=== PATIENT | female | born 1930 | race Hispanic/Latino ===

== ENCOUNTER 2017-03-21 18:48 | Inpatient (IN) | payer MEDICARE ==
[2017-03-21 19:02] VITALS: BMI 30.2
--- NOTE | 2017-03-21 19:43 | ED PDOC ---
Arrival/HPI - General Chief Complaint: Syncope Time Seen by Provider: 03/21/17 19:12 Historian: Patient - History of Present Illness Narrative History of Present Illness (Text): 03/21/17 19:12 Ann Severino is an 86 year old female, whose past medical history includes TIA , who presents to the emergency department complaining of a syncopal episode about 1.5 hours ago as per patient's daughter. Patient's daughter states that her mother was in the shower when she collapsed in her shower chair. Patient's daughter also notes that patient has been experiencing diarrhea for the past few days. At present, patient is awake in the emergency department but is nonverbal, history is taken from daughter. Patient has no other complaint at this time. Time/Duration: 1-3 hours Symptom Onset: Sudden Symptom Course: Improving Activities at Onset: Light Context: Home Past Medical History - Provider Review Nursing Documentation Reviewed: Yes - Tetanus Immunization Tetanus Immunization: Unknown - Cardiac Hx Cardiac Disorders: Yes Hx Congestive Heart Failure: Yes Hx VA: Yes Hx Hypertension: Yes Hx Pacemaker: No - Pulmonary Hx Respiratory Disorders: No - Neurological Hx Neurological Disorder: Yes HX Cerebrovascular Accident: Yes (08-27-13) Other/Comment: nonverbal due to stroke but able to communicate through nodding and eye contact - HEENT Hx HEENT Disorder: Yes (WEARS RX GLASSES) - Renal Hx Renal Disorder: No - Endocrine/Metabolic Hx Endocrine Disorders: Yes Hx Diabetes Mellitus Type 2: Yes - Hematological/Oncological Hx Blood Transfusions: No Hx Blood Transfusion Reaction: No - Integumentary Hx Dermatological Disorder: No - Musculoskeletal/Rheumatological Hx Musculoskeletal Disorders: Yes Hx Arthritis: Yes Hx Falls: Yes - Gastrointestinal Hx Gastrointestinal Disorders: Yes (HEMORRHOIDS,POLYPS REMOVED) Hx Gastroesophageal Reflux: Yes - Genitourinary/Gynecological Hx Genitourinary Disorders: No - Psychiatric Hx Emotional Abuse: No Hx Physical Abuse: No Hx Substance Use: No - Anesthesia Hx Anesthesia: Yes Hx Anesthesia Reactions: No Hx Malignant Hyperthermia: No - Suicidal Assessment Feels Threatened In Home Enviroment: No Family/Social History - Physician Review Nursing Documentation Reviewed: Yes Family/Social History: No Known Family HX Smoking Status: Never Smoked Hx Alcohol Use: No (OCCASIONAL) Hx Substance Use: No Hx Substance Use Treatment: No Allergies/Home Meds Allergies/Adverse Reactions: Allergies No Known Allergies Allergy (Verified 03/21/17 19:02) Home Medications: Home Meds Medication Instructions Recorded Confirmed Amlodipine Besylate [Amlodipine 5 mg PO DAILY 01/19/15 03/22/17 Besylate] Aspirin [Aspirin] 81 mg PO DAILY 01/19/15 03/22/17 Escitalopram Oxalate [Escitalopram 10 mg PO DAILY 01/19/15 03/22/17 Oxalate] Ursodiol [Ursodiol] 300 mg PO DAILY 01/19/15 03/22/17 Valsartan [Valsartan] 80 mg PO DAILY 01/19/15 03/22/17 Warfarin Sodium [Warfarin Sodium] 5 mg PO DAILY 01/19/15 03/22/17 Acetaminophen [Tylenol Arthritis] 650 mg PO BID 03/21/17 03/22/17 Allopurinol [Zyloprim] 100 mg PO DAILY 03/21/17 03/22/17 Aspirin [Aspirin Chewable] 81 mg PO DAILY 03/21/17 03/22/17 Atorvastatin [Lipitor] 40 mg PO DAILY 03/21/17 03/22/17 Ergocalciferol (Vitamin D2) 1.25 mg PO QWK 03/21/17 03/22/17 [Vitamin D2] Folic Acid [Folic Acid] 1 mg PO DAILY 03/21/17 03/22/17 Furosemide [Lasix] 40 mg PO DAILY 03/21/17 03/22/17 Furosemide [Lasix] 40 mg PO MWF 03/21/17 03/22/17 Magnesium Oxide [Magnesium] 400 mg PO BID 03/21/17 03/22/17 Metformin HCl [Glucophage] 1,000 mg PO BID 03/21/17 03/22/17 Potassium Chloride [Klor-Con 10] 10 meq PO DAILY 03/21/17 03/22/17 Review of Systems - Physician Review All systems were reviewed & negative as marked: Yes - Review of Systems Constitutional: absent: Fevers, Night Sweats Eyes: absent: Vision Changes ENT: absent: Hearing Changes Respiratory: absent: SOB, Cough Cardiovascular: Syncope. absent: Chest Pain Gastrointestinal: absent: Abdominal Pain Genitourinary Female: absent: Dysuria, Frequency, Urine Output Changes Musculoskeletal: absent: Back Pain, Neck Pain Skin: absent: Rash, Pruritis Neurological: Normal. absent: Headache, Dizziness Psychiatric: Normal Physical Exam Vital Signs Reviewed: Yes Vital Signs Temp Pulse Resp BP Pulse Ox 05/24/17 03:00 63 16 142/63 95 03/22/17 01:38 63 16 145/62 95 03/21/17 22:37 69 19 94 L 03/21/17 19:12 97.7 F 68 18 130/74 96 Temperature: Afebrile Blood Pressure: Normal Pulse: Regular Respiratory Rate: Normal Appearance: Positive for: Well-Appearing, Non-Toxic, Comfortable Pain Distress: None Mental Status: Positive for: other (Alert ) - Systems Exam Head: Present: Atraumatic, Normocephalic Pupils: Present: PERRL Extroacular Muscles: Present: EOMI Conjunctiva: Present: Normal Mouth: Present: Moist Mucous Membranes Neck: Present: Normal Range of Motion Respiratory/Chest: Present: Clear to Auscultation, Good Air Exchange. No: Respiratory Distress, Accessory Muscle Use Cardiovascular: Present: Regular Rate and Rhythm, Normal S1, S2. No: Murmurs Abdomen: Present: Normal Bowel Sounds. No: Tenderness, Distention, Peritoneal Signs Back: Present: Normal Inspection Upper Extremity: Present: Normal Inspection. No: Cyanosis, Edema Lower Extremity: Present: Normal Inspection. No: Edema Neurological: Present: Other (Non-verbal; residual right-sided weakness) Skin: Present: Warm, Dry, Normal Color. No: Rashes Psychiatric: Present: Alert Medical Decision Making ED Course and Treatment: 03/21/17 19:12 Impression: 86 year old female complaining of a syncopal episode in the shower about 1.5 hours ago. Differential Diagnosis include but are not limited to: Dehydration vs. Chronic Arrhythmia Plan: -- EKG -- Head CT w/o contrast -- Urinalysis, Urine culture -- Labs -- IV Fluids -- Reassess and disposition Progress Notes: Patient with a Lactate of 3.7 and WBC of 18.9 Code sepsis called. 03/21/17 23:43 EKG reviewed by me: NSR @ 68 bpm. Normal [place]. Normal interval. 03/21/17 23:47 CT Head results reviewed: IMPRESSION: 1. No acute intracranial hemorrhage. 2. Hypodense encephalomalacia is identified involving the left temporal and parietal lobes, consistent with an old left MCA infarct. Infarcts are also visualized within the left basal ganglia. Otherwise, there is no acute territorial type infarct. 3. There are scattered foci/areas of hypodensity within the cerebral white matter, likely representing small vessel ischemic disease in a patient this age. Small hypodense foci are seen within the bilateral thalami, similar in etiology. 4. Mild atrophy. 5. Within the superior left parafalcine region, there is a 1.0 x 0.7 cm calcification or calcified meningioma. 03/21/17 23:48 CT abdomen pelvis reviewed: IMPRESSION: 1. Cholelithiasis. 2. 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 3. There is wall thickening of the sigmoid colon and rectum, suggestive of proctocolitis, although additional pathology cannot be excluded. Further clinical evaluation is recommended. 4. Scattered nodules are identified at the lung bases. Within the right lower lobe, one of the nodules measures 8 mm on series 2 image 29. PET/CT is recommended 03/22/17 01:[address] Cannon, intensivitst, who recommends that patient does not require the ICU. Case discussed with Dr. Gastelum who is aware and agrees with the plan to admit patient to telemetry for Sepsis and syncope. Accepts patient under his service. - Lab Interpretations Lab Results: 03/21/17 19:40 03/21/17 19:40 Lab Results 03/22/17 00:05: PT 15.2 H, INR 1.41 H 03/22/17 00:05: pO2 52, VBG pH 7.37, VBG pCO2 49.0, VBG HCO3 28.3 H, VBG Total CO2 29.8 H, VBG O2 Sat (Calc) 92.0 H, VBG Base Excess 2.2 H, VBG Potassium 4.6, Glucose 115 H, Lactate 2.3 H, FiO2 21.0, Sodium 138.0, Chloride 106.0, Venous Blood Potassium 4.6 03/21/17 22:04: Urine Color Yellow, Urine Appearance Sl cloudy, Urine pH 5.5, Ur Specific [place] 1.020, Urine Protein Negative, Urine Glucose (UA) Negative, Urine Ketones Negative, Urine Blood Trace-intact H, Urine Nitrate Positive H, Urine Bilirubin Negative, Urine Urobilinogen 0.2, Ur Leukocyte Esterase Small H , Urine RBC 1 - 3, Urine WBC 2 - 5, Ur Epithelial Cells 1 - 3, Urine Bacteria Many 03/21/17 20:40: pO2 58 H, VBG pH 7.33, VBG pCO2 50.0, VBG HCO3 26.4, VBG Total CO2 27.9, VBG O2 Sat (Calc) 92.8 H, VBG Base Excess -0.2 L, VBG Potassium 4.7, Glucose 187 H, Lactate 3.7 H, FiO2 21.0, Sodium 139.0, Chloride 106.0, Venous Blood Potassium 4.7 03/21/17 19:40: Sodium 141, Potassium 5.1 H, Chloride 101, Carbon Dioxide 26, Anion Gap 19, BUN 20, Creatinine 1.0, Est GFR ( Amer) > 60, Est GFR (Non- Af Amer) 53, Random Glucose 181 H, Calcium 9.6, Total Bilirubin 1.0, AST 43 H, ALT 26, Alkaline Phosphatase 74, Troponin I 0.02 D, Total Protein 9.0 H, Albumin 4.7, Globulin 4.3, Albumin/Globulin Ratio 1.1, Lipase 135 03/21/17 19:40: WBC 18.9 H, RBC 4.43, Hgb 13.8, Hct 41.4, MCV 93.5, MCH 31.2, MCHC 33.3, RDW 14.5, Plt Count 244, MPV 10.8, Gran % 63.7, Lymph % (Auto) 30.7, [place] % (Auto) 4.5, Eos % (Auto) 0.8 L, Baso % (Auto) 0.3, Gran # 12.02 H, Lymph # 5.8 H, [place] # 0.9 H, Eos # 0.2, Baso # 0.05 I have reviewed the lab results: Yes - RAD Interpretation Narrative RAD Interpretations (Text): EXAM: CT Head Without Intravenous Contrast FINDINGS: Brain: Hypodense encephalomalacia is identified involving the left temporal and parietal lobes, consistent with an old left MCA infarct. Infarcts are also visualized within the left basal ganglia. There are scattered foci/areas of hypodensity within the cerebral white matter, likely representing small vessel ischemic disease in a patient this age. Small hypodense foci are seen within the bilateral thalami, similar in etiology. Within the superior left parafalcine region, there is a 1.0 x 0.7 cm calcification or calcified meningioma. The acuity of the white matter disease is indeterminate. There are calcifications within the globus pallidus bilaterally, which are likely physiologic. The white-sommer differentiation is otherwise preserved demonstrating no acute territorial type infarct. There is mild prominence of the ventricles and sulci, compatible with atrophy. No acute intracranial hemorrhage is seen. Midline shift: There is no midline shift. Ventricles: There is mild ex vacuo dilatation of the left lateral ventricle. Bones/joints: The calvarium demonstrates no evidence for a depressed fracture. Hypodensity is visualized within the right occipital skull, suggestive of an arachnoid granulation. Soft tissues: No acute abnormality. Vasculature: There is atherosclerotic calcification of the cavernous internal carotid arteries and distal vertebral arteries. Sinuses: Unremarkable as visualized. No acute sinusitis. Mastoid air cells: No mastoid effusion. IMPRESSION: 1. No acute intracranial hemorrhage. 2. Hypodense encephalomalacia is identified involving the left temporal and parietal lobes, consistent with an old left MCA infarct. Infarcts are also visualized within the left basal ganglia. Otherwise, there is no acute territorial type infarct. 3. There are scattered foci/areas of hypodensity within the cerebral white matter, likely representing small vessel ischemic disease in a patient this age. Small hypodense foci are seen within the bilateral thalami, similar in etiology. 4. Mild atrophy. 5. Within the superior left parafalcine region, there is a 1.0 x 0.7 cm calcification or calcified meningioma. 6. If further evaluation is clinically indicated, an MRI of the brain is recommended. EXAM: CT Abdomen and Pelvis Without Intravenous Contrast FINDINGS: Limitations: There is a limited evaluation of organ/aortic injury due to the absence of intravenous contrast administration. Lower thorax: Scattered nodules are identified at the lung bases. Within the right lower lobe, one of the nodules measures 8 mm on series 2 image 29. At the left lung base, there is an additional 7 mm nodule. Additional nodules are visualized. ABDOMEN: Liver: Unremarkable on these noncontrast images. No mass. Gallbladder and bile ducts: A large calcified gallstone is visualized. Pancreas: Normal contour. No ductal dilation. Spleen: No splenomegaly. Adrenals: No mass. Kidneys and ureters: There is a hypodense probable right renal cyst measuring 4.7 x 4.2 cm. No obstructing stones. No hydronephrosis. Stomach and bowel: There is wall thickening of the sigmoid colon and rectum, suggestive of proctocolitis, although additional pathology cannot be excluded. Appendix: No findings to suggest acute appendicitis. PELVIS: Bladder: No stones. Reproductive: Unremarkable as visualized. ABDOMEN and PELVIS: Intraperitoneal space: No free air. Bones/joints: Osteopenia. Soft tissues: Surgical clips are identified within the bilateral inguinal regions. There is minimal herniation of fat into the umbilicus. 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 There is atherosclerotic calcification of the abdominal aorta. Lymph nodes: There is no significant retroperitoneal or intrapelvic lymphadenopathy. Other findings: A nonspecific sclerotic lesion is visualized within the bilateral acetabula. IMPRESSION: 1. Cholelithiasis. 2. 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 3. There is wall thickening of the sigmoid colon and rectum, suggestive of proctocolitis, although additional pathology cannot be excluded. Further clinical evaluation is recommended. 4. Scattered nodules are identified at the lung bases. Within the right lower lobe, one of the nodules measures 8 mm on series 2 image 29. PET/CT is recommended. 5. Additional CT findings described above. Radiology Orders: 03/21/17 19:29 HEAD W/O CONTRAST [CT] Stat 03/21/17 19:30 CHEST PORTABLE [RAD] Stat 03/21/17 22:11 ABD & PELVIS W/O PO OR IV CONT [CT] Stat Identity Access Management Architect: Radiologist - Medication Orders Current Medication Orders: Acetaminophen (Tylenol 325mg Tab) 650 mg PO Q4H PRN PRN Reason: Fever >100.5 F Sodium Chloride (Sodium Chloride 0.9%) 1,000 mls @ 125 mls/hr IV .Q8H [facility]IA EUGENIA Last Admin: 03/21/17 22:15 Dose: 125 mls/hr Discontinued Medications Sodium Chloride (Sodium Chloride 0.9%) 1,000 mls @ 80 mls/hr IV .[id number] MARIA EUGENIA Last Admin: 03/21/17 20:02 Dose: 80 mls/hr Vancomycin HCl (Vancomycin 1gm) 1 gm in 250 mls @ 167 mls/hr IVPB STAT STA PRN Reason: Protocol Stop: 03/21/17 22:21 Last Admin: 03/21/17 23:31 Dose: 167 mls/hr Piperacillin Sod/Tazobactam Sod (Zosyn 4.5 Gm In Ns 100ml) 4.5 gm in 100 mls @ 200 mls/hr IVPB STAT STA PRN Reason: Protocol Stop: 03/21/17 21:21 Last Admin: 03/21/17 22:04 Dose: 200 mls/hr - Scribe Statement The provider has reviewed the documentation as recorded by the Markibchristopher Fitzpatrick Provider Scribe Attestation: All medical record entries made by the Scribe were at my direction and personally dictated by me. I have reviewed the chart and agree that the record accurately reflects my personal performance of the history, physical exam, medical decision making, and the department course for this patient. I have also personally directed, reviewed, and agree with the discharge instructions and disposition. Disposition/Present on Arrival - Present on Arrival Any Indicators Present on Arrival: No History of DVT/PE: No History of Uncontrolled Diabetes: No Urinary Catheter: No History of Decub. Ulcer: No History Surgical Site Infection Following: None - Disposition Have Diagnosis and Disposition been Completed?: Yes Diagnosis: Sepsis, Syncope Disposition: HOSPITALIZED Disposition Time: 01:20 Condition: FAIR
[2017-03-21] MEDS ORDERED: Sodium Chloride 0.9% 1,000 ML IV SCH (19:45)
[2017-03-21 19:49] LABS: ADD MANUAL DIFF? NO
[2017-03-21 20:06] LABS: BASO # 0.05 K/mm3 (0.0-2.0); BASO % 0.3 % (0.0-3.0); EOS # 0.2 (0.0-0.7); EOS % 0.8 % (1.5-5.0); GRAN # 12.02 (1.4-6.5); GRAN % 63.7 % (50.0-68.0); HEMATOCRIT 41.4 % (36.0-48.0); LYMPH # 5.8 (1.2-3.4); LYMPH % 30.7 % (22.0-35.0); MEAN CELL VOLUME 93.5 fL (80.0-105.0); MEAN CORPUSCULAR HEMOGLOBIN 31.2 pg (25.0-35.0); MEAN CORPUSCULAR HGB CONC 33.3 g/dl (31.0-37.0); MEAN PLATELET VOLUME 10.8 fl (7.0-11.0); MONO # 0.9 (0.1-0.6); MONO % 4.5 % (1.0-6.0); PLATELET COUNT 244 10^3/uL (120.0-450.0); RED CELL DISTRIBUTION WIDTH 14.5 % (11.5-14.5); WHITE BLOOD COUNT 18.9 10^3/ul (4.5-11.0)
[2017-03-21 20:12] LABS: ALB/GLOB RATIO 1.1 (1.1-1.8); ALKALINE PHOSPHATASE 74 U/L (38-133); ALT/SGPT 26 U/L (7-56); AST/SGOT 43 U/L (15-39); BLOOD UREA NITROGEN 20 mg/dL (7-21); CALCIUM 9.6 mg/dL (8.4-10.5); CARBON DIOXIDE 26 mmol/L (21-33); CHLORIDE 101 mmol/L (98-107); GFR AFRICAN-AMERICAN > 60; GLUCOSE,RANDOM 181 mg/dL (70-110); LIPASE 135 U/L (23-300); POTASSIUM 5.1 mmol/L (3.6-5.0); SODIUM 141 mmol/L (132-148)
[2017-03-21 20:23] LABS: TROPONIN I 0.02 ng/mL
[2017-03-21 20:43] LABS: VENOUS BLOOD GAS BASE EXCESS -0.2 mmol/L (0.0-2.0); VENOUS BLOOD PH 7.33 (7.32-7.43)
[2017-03-21] MEDS ORDERED: Vancomycin 1gm in NS 250ml 1 GM/250 ML BAG IVPB STA (20:52)
[2017-03-21] MEDS ORDERED: Piperacill/Tazo 4.5gm in NS 4.5 GM/100 ML BAG IVPB STA (20:52)
[2017-03-21 22:08] LABS: PH,URINE 5.5 (4.7-8.0); URINE BILIRUBIN NEGATIVE (NEGATIVE); URINE BLOOD TRACE-INTACT (NEGATIVE); URINE GLUCOSE (UA) NEGATIVE (NEGATIVE); URINE KETONE NEGATIVE (NEGATIVE); URINE LEUKOCYTE ESTERASE SMALL Leu/uL (NEGATIVE); URINE PROTEIN NEGATIVE mg/dL (<30 mg/dL); URINE UROBILINOGEN 0.2 E.U./dL (<1 E.U./dL)
[2017-03-21 22:10] LABS: URINE APPEARANCE SL CLOUDY (CLEAR); URINE COLOR YELLOW (YELLOW)
[2017-03-21] MEDS: Sodium Chloride 0.9% 1,000 ML IV SCH (22:15)
[2017-03-21 22:30] LABS: URINE BACTERIA MANY (NEG)
[2017-03-22 00:26] LABS: INR 1.41 (0.93-1.08)
[2017-03-22 00:29] LABS: VENOUS BLOOD GAS BASE EXCESS 2.2 mmol/L (0.0-2.0); VENOUS BLOOD PH 7.37 (7.32-7.43)
--- NOTE | 2017-03-22 03:12 | CP.PCM.CON ---
<Carmen Cat - Last Filed: 03/22/17 07:18> History of Present Illness - History of Present Illness History of Present Illness: PGY-1 Consult note 86 yo female wit PMH of TIA, HTN, CHF, DM, arthritis and a. fib presented to ED after syncopal episode. Patient is nonverbale after TIA, majority of history from daughter at bedside. Per daughter patient had loss consciences after getting out of gallito shower. The episode was witnessed by the access control specialist. Patient was unconscious for 1 minute. Patient was in sited position and did not hit her head. Her BP was 80/60 at the time of the event. Patient denies any pain, headaches, dizziness. Recently patient has diarrhea. Denies fever, chills, sob, abd pain, n/v, and urinary symptoms. Patient does have occasional wheezes however she take nebulizers at home. In ED patient was found to have elevated lactic acid and WBC, code sepsis was called. Patient had positive UA. CT abd showed thickened wall of sigmoid colon and rectum. CT head was negative for intracranial hemorrhage. EKG showed nsr. PMH: TIA, HTN, CHF, DM, arthritis and a. fib PSH: denies social hx: denies smoking, occasional alcohol use, denies illicit ezekiel use allergy: NKDA Review of Systems - Constitutional Constitutional: absent: Fever, Headache, Weight Gain, Weight Loss - EENT Eyes: absent: Change in Vision Nose/Mouth/Throat: absent: Sore Throat - Cardiovascular Cardiovascular: absent: Chest Pain, Dyspnea - Respiratory Respiratory: absent: Cough, Dyspnea - Gastrointestinal Gastrointestinal: Diarrhea. absent: Abdominal Pain, Nausea, Vomiting - Genitourinary Genitourinary: absent: Difficulty Urinating, Dysuria - Musculoskeletal Musculoskeletal: Arthralgias, Muscle Weakness (right sided 2/2 CVA) - Integumentary Integumentary: Wounds. absent: Swelling - Neurological Neurological: Focal Weakness, Syncope. absent: Dizziness, Headaches - Hematologic/Lymphatic Hematologic: Easy Bruising. absent: Easy Bleeding Past Patient History - Tetanus Immunizations Tetanus Immunization: Unknown - Past Social History Smoking Status: Never Smoked Alcohol: Occasional Drugs: Denies - CARDIAC Hx Cardiac Disorders: Yes Hx Congestive Heart Failure: Yes Hx Heart Attack: Yes Hx Hypertension: Yes Hx Pacemaker: No - PULMONARY Hx Respiratory Disorders: No - NEUROLOGICAL Hx Neurological Disorder: Yes HX Cerebrovascular Accident: Yes (08-27-13) Other/Comment: nonverbal due to stroke but able to communicate through nodding and eye contact - HEENT Hx HEENT Problems: Yes (WEARS RX GLASSES) - RENAL Hx Chronic Kidney Disease: No - ENDOCRINE/METABOLIC Hx Endocrine Disorders: Yes Hx Diabetes Mellitus Type 2: Yes - HEMATOLOGICAL/ONCOLOGICAL Hx Blood Transfusions: No Hx Blood Transfusion Reaction: No - INTEGUMENTARY Hx Dermatological Problems: No - MUSCULOSKELETAL/RHEUMATOLOGICAL Hx Musculoskeletal Disorders: Yes Hx Arthritis: Yes Hx Falls: Yes - GASTROINTESTINAL Hx Gastrointestinal Disorders: Yes (HEMORRHOIDS,POLYPS REMOVED) Hx Gastroesophageal Reflux: Yes - GENITOURINARY/GYNECOLOGICAL Hx Genitourinary Disorders: No - PSYCHIATRIC Hx Emotional Abuse: No Hx Physical Abuse: No Hx Substance Use: No - SURGICAL HISTORY Hx Surgeries: Yes (VEIN STRIPPING,POLYPS REMOVED IN THE COLON) - ANESTHESIA Hx Anesthesia: Yes Hx Anesthesia Reactions: No Hx Malignant Hyperthermia: No Meds Allergies/Adverse Reactions: Allergies Allergy/AdvReac Type Severity Reaction Status Date / Time No Known Allergies Allergy Verified 03/21/17 19:02 - Medications Medications: Current Medications Acetaminophen (Tylenol 325mg Tab) 650 mg PO Q4H PRN PRN Reason: Fever >100.5 F Sodium Chloride (Sodium Chloride 0.9%) 1,000 mls @ 125 mls/hr IV .Q8H MARIA EUGENIA Last Admin: 03/21/17 22:15 Dose: 125 mls/hr Physical Exam - Constitutional Appears: Well, No Acute Distress - Head Exam Head Exam: ATRAUMATIC, NORMOCEPHALIC - Eye Exam Eye Exam: Normal appearance - ENT Exam ENT Exam: Mucous Membranes Moist - Respiratory Exam Respiratory Exam: Clear to Auscultation Bilateral, NORMAL BREATHING PATTERN. absent: Rales, Rhonchi, Wheezes, Respiratory Distress - Cardiovascular Exam Cardiovascular Exam: REGULAR RHYTHM. absent: Tachycardia, Diastolic murmur, Systolic Murmur - GI/Abdominal Exam GI & Abdominal Exam: Normal Bowel Sounds, Soft. absent: Distended, Firm, Guarding, Tenderness - Extremities Exam Extremities exam: Positive for: normal inspection. Negative for: pedal edema Additional comments: right sided weakness - Neurological Exam Neurological exam: Alert, Oriented x3 - Skin Skin Exam: Dry, Intact, Normal Color, Warm Results - Vital Signs Recent Vital Signs: Last Vital Signs Temp 97.7 F 03/21/17 19:12 Pulse 63 03/22/17 01:38 Resp 16 03/22/17 01:38 BP 145/62 03/22/17 01:38 Pulse Ox 95 03/22/17 01:38 - Labs Result Diagrams: 03/21/17 19:40 03/21/17 19:40 Assessment & Plan - Assessment and Plan (Free Text) Assessment: 86 yo female wit PMH of TIA, HTN, CHF, DM, arthritis and a. fib presented to ED after syncopal episode most like due to sepsis. Plan: - IVF - broad spectrum abx - procalcitonin - ID consult - vitals are stable, patient does not require ICU level care. <Kassandra RAYMOND,Tiago - Last Filed: 03/22/17 08:08> Meds - Medications Medications: Current Medications Acetaminophen (Tylenol 325mg Tab) 650 mg PO Q4H PRN PRN Reason: Fever >100.5 F Allopurinol (Zyloprim) 100 mg PO DAILY [facility] Aspirin (Ecotrin) 81 mg PO DAILY [facility] Atorvastatin Calcium (Lipitor) 40 mg PO DAILY [facility] Cholecalciferol (Vitamin D) 2,000 iu PO DAILY [facility] Enoxaparin Sodium (Lovenox) 40 mg SC DAILY MARIA EUGENIA PRN Reason: Protocol Folic Acid (Folic Acid) 1 mg PO DAILY [facility] Sodium Chloride (Sodium Chloride 0.9%) 1,000 mls @ 125 mls/hr IV .Q8H [facility] Last Admin: 03/21/17 22:15 Dose: 125 mls/hr Piperacillin Sod/Tazobactam Sod (Zosyn 3.375 In Ns 100ml) 100 mls @ 200 mls/hr IVPB Q8 MARIA EUGENIA PRN Reason: Protocol Stop: 03/22/17 14:29 Last Admin: 03/22/17 06:33 Dose: 200 mls/hr Magnesium Oxide (Mag-Ox) 400 mg PO BID [facility] Non-Formulary Medication (Amlodipine Besylate [Amlodipine Besylate]) 5 mg PO DAILY [facility] Non-Formulary Medication (Escitalopram Oxalate [Escitalopram Oxalate]) 10 mg PO DAILY [facility] Non-Formulary Medication (Ursodiol [Ursodiol]) 300 mg PO DAILY [facility] Non-Formulary Medication (Valsartan [Valsartan]) 80 mg PO DAILY [facility] Non-Formulary Medication (Warfarin Sodium [Warfarin Sodium]) 5 mg PO DAILY MARIA EUGENIA Results - Vital Signs Recent Vital Signs: Last Vital Signs Temp 98.1 F 03/22/17 04:00 Pulse 64 03/22/17 04:00 Resp 20 03/22/17 04:00 BP 155/72 H 03/22/17 04:00 Pulse Ox 94 L 03/22/17 04:00 - Labs Result Diagrams: 03/22/17 07:00 03/21/17 19:40 Labs: Laboratory Results - last 24 hr 03/22/17 07:00 WBC 15.0 H D RBC 3.77 Hgb 11.6 L Hct 34.6 L MCV 91.8 MCH 30.8 MCHC 33.5 RDW 14.0 Plt Count 218 MPV 10.7 Gran % 48.9 L Lymph % (Auto) 42.6 H [place] % (Auto) 6.6 H Eos % (Auto) 1.7 Baso % (Auto) 0.2 Gran # 7.33 H Lymph # 6.4 H [place] # 1.0 H Eos # 0.3 Baso # 0.03 Attending/Attestation - Attestation I have personally seen and examined this patient.: Yes I have fully participated in the care of the patient.: Yes I have reviewed all pertinent clinical information: Yes Notes (Text): 03/22/17 08:04 -I agree with the above ICU consult note completed by the resident physician with the following additions and/or changes: -The patient is an 86 year old woman with a history of TIA, HTN, CHF, DM, arthritis and atrial fibrillation who presents with sepsis due to UTI and colitis. Because her vitals signs are relatively normal, she doesn't require ICU level of care at this time. We recommend admitting the patient to the telemetry garcia and starting aggressive IVF's and empiric IV antibiotics. Also recommend checking procalcitonin and lactic acid level and consulting I.D. If the patient's condition deteriorates, please feel free to re-consult. Thank you.
[2017-03-22] MEDS: Piperacillin/Tazobact 3.375 gm 100 ML IVPB SCH ×3 (06:33→22:42)
[2017-03-22 07:45] LABS: ADD MANUAL DIFF? NO
[2017-03-22 07:56] LABS: BASO # 0.03 K/mm3 (0.0-2.0); BASO % 0.2 % (0.0-3.0); EOS # 0.3 (0.0-0.7); EOS % 1.7 % (1.5-5.0); GRAN # 7.33 (1.4-6.5); GRAN % 48.9 % (50.0-68.0); HEMATOCRIT 34.6 % (36.0-48.0); LYMPH # 6.4 (1.2-3.4); LYMPH % 42.6 % (22.0-35.0); MEAN CELL VOLUME 91.8 fL (80.0-105.0); MEAN CORPUSCULAR HEMOGLOBIN 30.8 pg (25.0-35.0); MEAN CORPUSCULAR HGB CONC 33.5 g/dl (31.0-37.0); MEAN PLATELET VOLUME 10.7 fl (7.0-11.0); MONO % 6.6 % (1.0-6.0); PLATELET COUNT 218 10^3/uL (120.0-450.0)
[2017-03-22 08:09] LABS: ALB/GLOB RATIO 1.2 (1.1-1.8); ALKALINE PHOSPHATASE 68 U/L (38-133); ALT/SGPT 26 U/L (7-56); AST/SGOT 23 U/L (15-39); BILIRUBIN,DIRECT 0.3 mg/dL (0.0-0.4); BILIRUBIN,TOTAL 0.8 mg/dL (0.2-1.3); BLOOD UREA NITROGEN 18 mg/dL (7-21); CALCIUM 8.7 mg/dL (8.4-10.5); CARBON DIOXIDE 29 mmol/L (21-33); CHLORIDE 105 mmol/L (98-107); GFR AFRICAN-AMERICAN > 60; GLUCOSE,RANDOM 93 mg/dL (70-110); MAGNESIUM 1.7 mg/dL (1.7-2.2); POTASSIUM 4.1 mmol/L (3.6-5.0); SODIUM 140 mmol/L (132-148); TOTAL PROTEIN 6.9 g/dL (5.8-8.3)
[2017-03-22 08:22] LABS: TROPONIN I 0.01 ng/mL
[2017-03-22 08:52] LABS: FREE T4 0.89 ng/dL (0.78-2.19); T4 6.7 ug/dL (5.5-11.0)
[2017-03-22 09:00] LABS: CHOLESTEROL 157 mg/dL (130-200); URIC ACID 3.5 mg/dL (2.5-6.2)
--- NOTE | 2017-03-22 09:00 | CT ---
PROCEDURE: CT Abdomen and Pelvis without Oral or IV contrast. HISTORY: abd pain COMPARISON: Abdominal ultrasound performed 09/05/13 TECHNIQUE: Contiguous axial images of the abdomen and pelvis. No oral or IV contrast administered. Coronal and Sagittal reformats generated and reviewed. Radiation dose: Total exam DLP = 1017.11 mGy-cm. This CT exam was performed using one or more of the following dose reduction techniques: Automated exposure control, adjustment of the mA and/or kV according to patient size, and/or use of iterative reconstruction technique. FINDINGS: There is limited evaluation of the solid organs without the administration of IV contrast. LOWER THORAX: No visible consolidation, pleural effusion, or pneumothorax. Scattered pulmonary nodules at the lung bases measuring up to 8 mm in the right lower lobe (series 2, image 29) and 7 mm at the left lung base. Small hiatal hernia/distal esophageal wall thickening. LIVER: Unremarkable unenhanced appearance. GALLBLADDER AND BILE DUCTS: 17 mm calcified gallstone. PANCREAS: Unremarkable unenhanced appearance. 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 Unremarkable unenhanced appearance of the spleen. ADRENALS: Unremarkable unenhanced appearance. KIDNEYS AND URETERS: No hydronephrosis or obstructing renal calculus. 4.3 cm right lower pole renal hypodensity measures approximately 10 HU consistent with cyst. BLADDER: The urinary bladder appears unremarkable. REPRODUCTIVE: Uterus is present. APPENDIX: The appendix appears within normal limits of caliber. No secondary signs of acute appendicitis. BOWEL: The stomach is nondistended. Lack of oral contrast limits evaluation for bowel pathology. The bowel loops appear within normal limits of caliber without evidence of intestinal obstruction. Evidence of wall thickening involving the rectosigmoid colon ; correlate clinically for colitis and/or proctitis. Please note under distension limits evaluation. PERITONEUM: No significant free fluid. No definite free air. LYMPH NODES: No bulky lymphadenopathy identified. VASCULATURE: Dense atherosclerotic calcifications of the aorta and branches. No aortic aneurysm. BONES: Osseous demineralization. Degenerative changes. OTHER FINDINGS: None. IMPRESSION: Cholelithiasis. Evidence of wall thickening involving the rectosigmoid colon ; correlate clinically for colitis and/or proctitis. Please note under distension limits evaluation. Evidence of calcified splenic artery aneurysm. 4.3 cm right lower pole renal cyst. Bilateral lower lobe pulmonary nodules measuring up to 8 mm at the right lung base and 7 mm at the left lung base. Recommend patient's indicate further evaluation with biopsy, PET- CT, or follow-up CT at 3 months, and 9 months, and 24 months. Additional findings as above. Preliminary impression was provided by virtual radiologic.
[2017-03-22 09:05] LABS: THYROID STIMULATING HORMONE 1.64 mIU/mL (0.46-4.68)
[2017-03-22] MEDS ORDERED: Potassium Chloride 10 mEq ER Tab PO SCH (10:00)
[2017-03-22] MEDS ORDERED: ERGOCALCIFEROL 1.25 MG PO SCH (10:00)
[2017-03-22] MEDS ORDERED: Gadodiamide 287 MG/ML VIAL (15ML) IV ONE (10:03)
--- NOTE | 2017-03-22 10:05 | CARD ---
APPROVED REPORT EKG Measurement Heart [id number] <Conclusion> Normal sinus rhythm Normal ECG
--- NOTE | 2017-03-22 10:31 | RAD ---
HISTORY: syncope COMPARISON: 02/05/2014 FINDINGS: LUNGS: No active pulmonary disease. PLEURA: No significant pleural effusion identified, no pneumothorax apparent. CARDIOVASCULAR: Normal. OSSEOUS STRUCTURES: No significant abnormalities. VISUALIZED UPPER ABDOMEN: Normal. OTHER FINDINGS: None. IMPRESSION: No active disease.
--- NOTE | 2017-03-22 10:58 | CT ---
PROCEDURE: CT HEAD WITHOUT CONTRAST. HISTORY: syncope COMPARISON: 09/16/2013 TECHNIQUE: Axial computed tomography images were obtained through the head/brain without intravenous contrast. Radiation dose: Total exam DLP = 725 mGy-cm. This CT exam was performed using one or more of the following dose reduction techniques: Automated exposure control, adjustment of the mA and/or kV according to patient size, and/or use of iterative reconstruction technique. FINDINGS: HEMORRHAGE: No intracranial hemorrhage. BRAIN: No mass effect or edema. There is chronic encephalomalacia in the left temporal and parietal lobes and basal ganglia. There is associated atrophy with dilatation of the left lateral ventricle. VENTRICLES: Unremarkable. No hydrocephalus. CALVARIUM: Unremarkable. PARANASAL SINUSES: Unremarkable as visualized. No significant inflammatory changes. MASTOID AIR CELLS: Unremarkable as visualized. No inflammatory changes. OTHER FINDINGS: None. IMPRESSION: Chronic encephalomalacia in the left temporal and parietal lobe and left basal ganglia. No acute findings
[2017-03-22] MEDS: Enoxaparin 40 mg Syringe SC SCH (12:28)
[2017-03-22] MEDS: Magnesium Oxide 400 mg Tab UD PO SCH ×2 (12:28→17:17)
[2017-03-22 12:49] LABS: FOLATE > 20.0 ng/mL
--- NOTE | 2017-03-22 13:45 | MRI ---
PROCEDURE: MRI BRAIN WITH AND WITHOUT CONTRAST HISTORY: SYNCOPE/CVA COMPARISON: 03/21/2017 TECHNIQUE: Multiplanar, multisequence MR images of the brain were obtained with and without intravenous contrast enhancement. 15 cc of Omniscan FINDINGS: HEMORRHAGE: None DWI: No evidence of an acute or early subacute infarction. BRAIN PARENCHYMA: There is extensive encephalomalacia in the left hemisphere including the basal ganglia. There is left-sided atrophy with dilatation of the left lateral ventricle ENHANCEMENT: No abnormal intracranial enhancement. VENTRICLES: Unremarkable. No hydrocephalus. CRANIUM: Unremarkable. ORBITS: Grossly unremarkable. PARANASAL SINUSES/MASTOIDS: Clear VASCULAR SYSTEM: Skull base flow voids intact. OTHER FINDINGS: None . IMPRESSION: No acute intracranial findings. There is extensive encephalomalacia in the left hemisphere including the basal ganglia. There is left-sided atrophy with dilatation of the left lateral ventricle
--- NOTE | 2017-03-22 13:48 | MRI ---
PROCEDURE: Magnetic Resonance Angiography Brain HISTORY: SYNCOPE/CVA COMPARISON: None available. TECHNIQUE: 3D time of flight MR angiography of the intracranial arteries was performed. Rotating maximum intensity projection images were generated. FINDINGS: INTERNAL CEREBRAL ARTERIES: Unremarkable. The skull base, petrous, cavernous and supraclinoid segments are bilaterally widely patient. ANTERIOR CEREBRAL ARTERIES: Unremarkable. A1 and A2 segments are widely patent. Smaller distal branches unremarkable, as visualized. MIDDLE CEREBRAL ARTERIES: Unremarkable. M1 and M2 segments are widely patent. Perisylvian branches grossly symmetric. POSTERIOR CIRCULATION: Basilar Artery: Unremarkable. Distal Vertebral Arteries: Unremarkable. Posterior Cerebral Arteries: Unremarkable. Posterior Inferior Cerebellar Arteries: Unremarkable. ANEURYSM/ VASCULAR MALFORMATIONS: None. OTHER FINDINGS: None. IMPRESSION: Unremarkable MR angiography of the brain.
--- NOTE | 2017-03-22 14:07 | CON ---
DATE: 03/22/2017 HISTORY OF PRESENT ILLNESS: The patient is an 86-year-old woman with a history of TIAs in the past, who was found to be on the floor after a syncopal episode lasting approximately 1 minute. PAST MEDICAL HISTORY: Notable for hypertension, questionable atrial fibrillation in the past. The patient's last cardiac evaluation included a stress test in 2014 which showed good LV function an d no ischemic changes. Since her episode, the patient has been nonverbal. SOCIAL HISTORY AND REVIEW OF SYSTEMS: Are unavailable. PHYSICAL EXAMINATION: VITAL SIGNS: Stable. The heart rate is in the 70s, normal sinus rhythm. NECK: Negative JVD. LUNGS: Without rales. HEART: Revealed S1, S2 with a soft II/ systolic ejection murmur. EXTREMITIES: Without edema. LABORATORIES: Includes an EKG which is unremarkable. Troponins are negative x 1. The CT scan of the head was noted. IMPRESSION: 1. Syncope. 2. Questionable new cerebrovascular accident. 3. Remote history of atrial fibrillation, although the patient is in normal sinus rhythm now. 4. Hypertension. Given these findings, will obtain an echocardiogram to evaluate her LV function as well as rule out L V outflow obstruction. MRI of the head is pending. Edson Garay MD cc: [id number] TT: 03/22/2017 14:06:41 Confirmation # [id number] Dictation # [id number] pollo
[2017-03-22] MEDS: Sodium Chloride 0.9% 1,000 ML IV SCH ×2 (14:39→22:46)
--- NOTE | 2017-03-22 15:36 | HP ---
HISTORY OF PRESENT ILLNESS: The patient is an 86-year-old female who was brought to the Emergency Ro om after the patient's daughter called me last night that, while the patient was in the shower francisco fine cleaned up by the quality process engineer, patient had a syncopal episode and loss of consciousness. According t o the quality process engineer and the patient's family, the blood pressure was low in systolic, around 80s. At gael t time, the patient's family called and contracted us. I advised the patient's daughter to take cathy ent to the Emergency Room as soon as possible. The patient's 13 system review, according to the ER t renata note and as per the Emergency Room evaluation and as per the family, is loss of consciousness a nd syncope, and this happened while patient was in the shower being assisted by the patient's caretak er; the patient fell on the chair and passed out. REVIEW OF SYSTEMS: A 13-system review was done. Pertinent positive and negative dictated above. CODE STATUS: Full code. LIVING WILL AND ADVANCED DIRECTIVE: None. ALLERGIES: None. Height is 5 feet 2 inches. Weight is 172. BMI is 32. HOME MEDICATIONS: 1. Coumadin 5 mg daily. 2. Diovan 80 mg daily. 3. Actigall 300 mg once a day. 4. K-Dur 10 mEq daily. 5. Metformin 1000 mg twice a day. 6. Magnesium 400 twice a day. 7. Lasix 40 mg daily and b.i.d. Monday, Monday and Monday. 8. Folic acid 1 mg daily. 9. Lexapro 10 mg daily. 10. Vitamin D2 50,000 weekly. 11. Lipitor 40 mg daily. 12. Ecotrin 81 mg daily. 13. Norvasc 5 mg daily. 14. Zyloprim 100 mg daily. 15. Tylenol Arthritis p.r.n. SOCIAL HISTORY: Occasional alcohol. Denies smoking, denies substance abuse, denies polysubstance ab use, denies communicable transmissible disease as per the patient's family. OCCUPATIONAL HISTORY: Disabled 86-year-old female. MENSTRUAL HISTORY: Postmenopausal. 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 Past medical history is also significant for history o f normocytic anemia, history of hypercholesterolemia, hypertriglyceridemia. The patient's past medic al history is significant for history of left temporal lobe/left basal ganglia subacute infarct in , history of cholelithiasis, history of right renal cyst, history of deconditioning, history of gai t dysfunction, history of right-sided hemiparesis, history of left basal ganglia/left lira radiata/ anterior temporal lobe subacute infarct with left posterior temporal lobe infarct, history of 40-59% proximal bilateral carotid artery stenosis, history of right shoulder pain, history of left lira ra diata/left basal ganglia/left temporal lobe acute infarct in 07/2013, history of sigmoid/transverse c olon/descending colon polyp and tubular adenoma and hyperplastic polyp of the sigmoid colon and tubul ar adenoma of the transverse and descending colon, history of hypertensive cardiovascular disease, hi story of gait dysfunction, history of expressive aphasia, history of aortic sclerosis, history of mod erate aortic valve sclerosis, history of mild mitral regurgitation, history of mild tricuspid regurgi tation. Past medical history is also significant for history cerebrovascular accident with right-edward ed weakness in 2012, history of hemorrhagic conversion of the CVA, history of gastrostomy tube placem ent, history of expressive aphasia. 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 The patient's past medical history is also significant for history of feeding dysfunction, history of hyp ertension, history of chronic lymphocytic leukemia, history of aspiration pneumonia, chronic lymphocy tic leukemia, history of gastrostomy tube placement. The patient's past medical history is significa nt for history of deconditioning. PHYSICAL EXAMINATION: VITAL SIGNS: The patient was seen and evaluated in the Emergency Room. T-max is 98.1. Heart rate i s 63-64-85. Blood pressure in the Emergency Room 130/74, 145/62, 142/63, 153/72, 142/63, 123/54. Re spiration is 16-20. O2 sat is 95-96%. GENERAL: The patient is seen sitting up in the bed. The patient is awake, responsive, aphasic. HEAD: Normocephalic, atraumatic. EENT: Shows pinkish conjunctivae, dry oral mucosa. No neck rigidity. Soft carotid bruit. The cathy ent is aphasic. CHEST: Kyphosis. LUNGS: Show occasional rhonchi upper lung soares. CARDIOVASCULAR: Shows S1, S2, regular rhythm. Questionable soft systolic murmur left sternal border , left second intercostal space. ABDOMEN: Protuberant. GENITALIA: Female. RECTAL: Deferred. EXTREMITIES: Show no pitting edema, no calf tenderness, no Homans' sign. Positive right-sided weakn ess noted. ADDENDUM TO PAST MEDICAL HISTORY: The patient's past medical history has a history of questionable c oronary artery disease, history of type 2 diabetes, history of colonic polyp, history of gastroesopha geal reflux, history of degenerative joint disease, history of cerebrovascular accident, history of v aricose vein surgery. NEUROLOGIC: The patient appears to be alert, awake and responsive but aphasic. NEUROLOGIC: Examination is limited except for patient is aphasic at present. GAIT: Could not be tested . DIAGNOSTICS: WBC at 18.9, repeat WBC is 15.0. Hemoglobin and hematocrit are 13.8 and 41.4. Repeat CBC showed hemoglobin and hematocrit of 11.6 and 34.6. Platelets are ranging between 218 and 244. P T, INR are 15.2, 1.41. Initial VBG shows a lactate of 3.7. Repeat VBG shows a lactate of 2.3. Init ial chemistry: Sodium 141, potassium 5.1, chloride 101, CO2 of 26, anion gap 19, BUN 20, creatinine 1.0, GFR greater than 60, glucose 181. Lactic acid was 1.1, uric acid 3.5, calcium 9.6 and 8.7, magn esium 1.7. AST 43, down to 23. Troponin 2 sets are negative at 0.01 and 0.02. Triglyceride 225, ch olesterol 157, LDL 72. Procalcitonin level is 0.09. TSH 1.64. B12 447, vitamin D 33.5. TSH is nor mal. T4 is normal. Urine pH 5.0, specific gravity is 1.020, trace blood, positive nitrites, small l eukocyte esterase, many bacteria. The patient had a CAT scan of the head and abdomen and pelvis done in the Emergency Room. The patient's CT head and CAT scan of the abdomen and pelvis were reviewed. CAT scan of the head shows old left middle cerebral artery infarct. CAT scan of the abdomen and pel vis shows cholelithiasis, renal cyst, questionable proctocolitis. CT of the head official report: C hronic left temporal lobe and parietal lobe encephalomalacia and encephalomalacia of the left basal g anglia. CAT scan of the abdomen and pelvis shows bibasilar subcentimeter pulmonary nodules, hiatal h ernia, distal esophageal wall thickening, splenic hilum calcification. Questionable rectosigmoid pro ctocolitis with wall thickening. EKG shows sinus rhythm. The patient was seen in the Emergency Room by the ER physician. The patient is requested an ICU eval uation because code sepsis was called because of elevated lactic acid. Code sepsis was called for el evated lactic acid. The patient was evaluated by an wet char conveyor tender and patient was cleared for admissio n to telemetry. IMPRESSION: 1. Syncope, etiology undetermined. 2. History of possible atrial fibrillation, Coumadin-dependent. 3. Lactic acidosis with possible sepsis. 4. Transient hypotension. 5. History of expressive aphasia secondary to left middle cerebral artery infarct. 6. Status post code sepsis. 7. Leukocytosis. 8. Subtherapeutic anticoagulation. 9. Lactic acidosis. 10. Dyslipidemia. 11. Mild hyperkalemia. 12. Hyperglycemia. 13. Questionable urinary tract infection with pyuria, microscopic hematuria, bacteriuria. 14. Left temporoparietal lobe and left basal ganglia chronic encephalomalacia secondary to left midd le cerebral artery infarct. 15. Subcentimeter pulmonary nodules of the right and left lower lobe. 16. Small hiatal hernia. 17. Questionable gastroesophageal reflux with distal esophageal wall thickening. 18. Cholelithiasis. 19. Splenic hilum calcified, splenic artery aneurysm. 20. Right renal cyst. 21. Questionable proctocolitis with rectosigmoid wall thickening. 22. Degenerative joint disease of the spine. 23. Cholelithiasis. 24. Right hemiparesis. 25. History of Coumadin-dependent atrial fibrillation. 26. History of hypertension, history of cholelithiasis, history of type 2 diabetes mellitus, history of bilateral lower extremity venous stasis, history of depression, history of hypovitaminosis D, his tory of dyslipidemia, history of hyperuricemia. PLAN: At this time, patient is to be admitted to telemetry. Serial labs ordered. Serial PT, PTT or dered. Blood cultures, urine cultures ordered. CONSULTATIONS: Cardiology, neurology, infectious disease. The patient has been ordered RPR. MEDICATIONS: 1. Actigall 300 mg daily ordered. 2. The patient resumed on Coumadin 5 mg daily, which according to the patient's daughter, the patien t has not been taking regularly. 3. The patient is started on Cozaar 50 mg daily instead of Diovan. 4. Ecotrin 81 mg daily. 5. Folic acid 1 mg daily. 6. Lexapro 10 mg daily. 7. Lipitor 40 mg daily. 8. Lovenox 40 mg subQ daily. 9. Magnesium oxide 400 twice a day. 10. The patient was given IV fluid. 11. Tylenol 650 q. 4 p.r.n. 12. The patient was given vancomycin 1 gram stat. 13. Vitamin D3 2000 units daily. 14. The patient started on Zosyn 3.375 g IV q. 8. 15. Allopurinol 100 mg daily. The patient is ordered Carotid Doppler, MRI/MRA of the brain, EEG. Echo with Doppler ordered. The p hadley's MRI/MRA brain, carotid Doppler, echo results are pending. EEG is pending. The patient has been ordered out of bed, SWETA stockings, SCDs. Occupational and physical therapy ordered. At present , patient is admitted to telemetry to room 270. At present, patient's further management will be dep endent upon the patient's clinical condition, hemodynamic status, and as per the patient's response t o therapeutic intervention, as per patient's diagnostic test results and as per recommendation by all physicians involved in the care of the patient. Dictated and electronically signed; not read. Cody Fareed Gastelum MD cc: [id number] TT: 03/22/2017 15:11:00 ma 03/22/2017 14:36:13
--- NOTE | 2017-03-22 16:23 | US ---
PROCEDURE: Bilateral carotid artery duplex ultrasound HISTORY: Carotid stenosis syncope PHYSICIAN(S): Edson Hernandez MD. TECHNIQUE: Duplex sonography and color-flow Doppler were used to evaluate the carotid bifurcations and limited segments of the vertebral arteries bilaterally. FINDINGS: There is mild to moderate smooth heterogeneous plaque noted at the carotid bifurcations bilaterally. The peak systolic velocity in the proximal right internal carotid artery is 115 cm/sec. This corresponds to a 40-59 percent proximal right ICA stenosis. Normal systolic velocities are noted in the proximal right external carotid artery. There is antegrade flow in the dominant right vertebral artery. The peak systolic velocity in the proximal left internal carotid artery is 56 cm/sec. This corresponds to a 20 to 39% proximal left ICA stenosis. Normal systolic velocities are noted in the proximal left external carotid artery. There is antegrade flow in the atretic left vertebral artery. IMPRESSION: 1. 40-59 percent proximal right ICA stenosis. 2. 20-39 percent proximal left ICA stenosis. 3. Antegrade flow in both vertebral arteries.
--- NOTE | 2017-03-22 18:56 | CARD ---
APPROVED REPORT EXAM: Two-dimensional and M-mode echocardiogram with Doppler and color Doppler. INDICATION Syncope 2D DIMENSIONS Left Atrium (2D)4.0 (1.6-4.0cm)IVSd0.9 (0.7-1.1cm) LVDd4.3 (3.9-5.9cm)PWd1.0 (0.7-1.1cm) LVDs2.9 (2.5-4.0cm)FS (%) 32.6 % LVEF (%)61.2 (>50%) M-Mode DIMENSIONS Aortic Root1.80 (2.2-3.7cm)Aortic Cusp Exc.1.40 (1.5-2.0cm) Aortic Valve AoV Peak Oseqguye804.0cm/Ciaarn Peak GR.12mmHg Mitral Valve MV E Btyjnjfh15.3cm/sMV A Hswoudqe62.8cm/sE/A ratio1.4 TDI E/Lateral E'0.0E/Medial E'0.0 Tricuspid Valve TR Peak Pozpjlro095po/sRAP [id number] Peak Gr.15mmHg [id number] LEFT VENTRICLE The left ventricle is normal size. There is normal left ventricular wall thickness. The left ventricular function is normal. The left ventricular ejection fraction is within the normal range. There is normal LV segmental wall motion. Transmitral Doppler flow pattern is Grade II-pseudonormal filling dynamics. RIGHT VENTRICLE The right ventricle is borderline dilated. There is normal right ventricular wall thickness. The right ventricular systolic function is normal. ATRIA The left atrium size is normal. The right atrium size is normal. AORTIC VALVE The aortic valve is moderately thickened. No aortic regurgitation is present. There is no aortic valvular stenosis. MITRAL VALVE The mitral valve is normal in structure. TRICUSPID VALVE There is no pulmonary hypertension. GREAT VESSELS The aortic root is normal in size. PERICARDIAL EFFUSION There is a trace loculated anterior pericardial effusion. <Conclusion> The left ventricle is normal size. There is normal left ventricular wall thickness. The left ventricular function is normal. The left ventricular ejection fraction is within the normal range. There is normal LV segmental wall motion.
--- NOTE | 2017-03-22 20:06 | CON ---
DATE: 03/22/2017 HISTORY OF PRESENT ILLNESS: This is an 86-year-old female with past medical history of diabetes, hyp ertension, TIAs and atrial fibrillation who came to the Emergency Room with a syncopal episode. The patient's daughter says she lost consciousness after getting out of the shower and it was witnessed b y a radiographer mammographer. The patient lost consciousness for a minute or so and denies any headache, dizziness. No fever. PAST MEDICAL HISTORY: TIA, hypertension, diabetes, arthritis and afib. SOCIAL HISTORY: Does not smoke, does not drink. ALLERGIES: No known drug allergy. PHYSICAL EXAMINATION: HEENT: Normocephalic, atraumatic. NECK: Supple. NEUROLOGIC: Awake, oriented to self and place. Cranial nerves II-XII were tested. Pupils reactive. Spontaneous movement of the extremities noted. Deep tendon reflexes 1+. Both plantars are downgoi ng. Sensory appears intact. Cerebellar and gait deferred. LABORATORY DATA: WBC 18.9, hemoglobin 13.8, hematocrit 41.4, platelets 244. Sodium 141, potassium _ ____, chloride 101, CO2 of 26, glucose 181, BUN 20, creatinine 1, blood pressure 145/62. The patient 's MRI showed a left hemispheric basal ganglia encephalomalacia and CAT scan showed chronic encephalo malacia of the left temporal and parietal and left basal ganglia. PLAN: Continue present management. We will follow up. Robert Bernal MD cc: [id number] TT: 03/22/2017 20:05:42 Confirmation # [id number] Dictation # [id number] pollo
--- NOTE | 2017-03-22 20:19 | CP.PCM.CON ---
History of Present Illness - History of Present Illness History of Present Illness: 86 year old female with PMH of TIA, HTN, chronic CHF, atrial fibrillation, DM, obesity with BMI 32 was brought in to [facility] because of syncopal episode after getting out the shower. The patient apparently gained consciousness after about 1 minute. There was no note of trauma to the head, no bladder or bowel incontinence. There was no note of fever, no convulsions. The patient also has had episodes of loose bowel movement. In the ED, CT of the abdomen and pelvis revealed rectosigmoid thickening and Infectious Diseases consult is requested to further evaluate and manage. Review of Systems - Review of Systems Systems not reviewed;Unavailable: Other (patient is non-verbal) Past Patient History - Tetanus Immunizations Tetanus Immunization: Unknown - Past Social History Smoking Status: Never Smoked - CARDIAC Hx Cardiac Disorders: Yes Hx Congestive Heart Failure: Yes Hx Heart Attack: Yes Hx Hypertension: Yes Hx Pacemaker: No - PULMONARY Hx Respiratory Disorders: No - NEUROLOGICAL Hx Neurological Disorder: Yes HX Cerebrovascular Accident: Yes (08-27-13) Other/Comment: nonverbal due to stroke but able to communicate through nodding and eye contact - HEENT Hx HEENT Problems: Yes (WEARS RX GLASSES) - RENAL Hx Chronic Kidney Disease: No - ENDOCRINE/METABOLIC Hx Endocrine Disorders: Yes Hx Diabetes Mellitus Type 2: Yes - HEMATOLOGICAL/ONCOLOGICAL Hx Blood Transfusions: No Hx Blood Transfusion Reaction: No - INTEGUMENTARY Hx Dermatological Problems: No - MUSCULOSKELETAL/RHEUMATOLOGICAL Hx Musculoskeletal Disorders: Yes Hx Arthritis: Yes Hx Falls: Yes - GASTROINTESTINAL Hx Gastrointestinal Disorders: Yes (HEMORRHOIDS,POLYPS REMOVED) Hx Gastroesophageal Reflux: Yes - GENITOURINARY/GYNECOLOGICAL Hx Genitourinary Disorders: No - PSYCHIATRIC Hx Emotional Abuse: No Hx Physical Abuse: No Hx Substance Use: No - SURGICAL HISTORY Hx Surgeries: Yes (VEIN STRIPPING,POLYPS REMOVED IN THE COLON) - ANESTHESIA Hx Anesthesia: Yes Hx Anesthesia Reactions: No Hx Malignant Hyperthermia: No Meds Allergies/Adverse Reactions: Allergies Allergy/AdvReac Type Severity Reaction Status Date / Time No Known Allergies Allergy Verified 03/21/17 19:02 - Medications Medications: Current Medications Acetaminophen (Tylenol 325mg Tab) 650 mg PO Q4H PRN PRN Reason: Fever >100.5 F Sodium Chloride (Sodium Chloride 0.9%) 1,000 mls @ 125 mls/hr IV .Q8H MARIA EUGENIA Last Admin: 03/21/17 22:15 Dose: 125 mls/hr Piperacillin Sod/Tazobactam Sod (Zosyn 3.375 In Ns 100ml) 100 mls @ 200 mls/hr IVPB Q8 MARIA EUGENIA PRN Reason: Protocol Stop: 03/22/17 14:29 Last Admin: 03/22/17 06:33 Dose: 200 mls/hr Physical Exam - Constitutional Appears: Non-toxic, No Acute Distress - Head Exam Head Exam: NORMAL INSPECTION - Neck Exam Neck exam: Negative for: Lymphadenopathy, Meningismus - Respiratory Exam Respiratory Exam: Decreased Breath Sounds - Cardiovascular Exam Cardiovascular Exam: +S1, +S2 - GI/Abdominal Exam GI & Abdominal Exam: Soft. absent: Tenderness Results - Vital Signs Recent Vital Signs: Last Vital Signs Temp 98.1 F 03/22/17 04:00 Pulse 64 03/22/17 04:00 Resp 20 03/22/17 04:00 BP 155/72 H 03/22/17 04:00 Pulse Ox 94 L 03/22/17 04:00 - Labs Result Diagrams: 03/22/17 07:00 03/22/17 07:00 Assessment & Plan - Assessment and Plan (Free Text) Plan: Assessment Consider sepsis due to colitis, R/O C. diff. colitis Syncope, work up in progress TIA HTN chronic CHF atrial fibrillation DM obesity with BMI 32 Plan Started patient on Zosyn and PO Vancomycin pending blood cx, stool for C. diff. Will monitor clinically
[2017-03-22] MEDS: Vancomycin 25 MG/ML PO SCH (21:50)
[2017-03-23] MEDS: Sodium Chloride 0.9% 1,000 ML IV SCH ×3 (05:02→22:38)
[2017-03-23] MEDS: Piperacillin/Tazobact 3.375 gm 100 ML IVPB SCH ×3 (05:08→22:38)
[2017-03-23 06:52] LABS: ADD MANUAL DIFF? NO
[2017-03-23 06:55] LABS: BASO # 0.03 K/mm3 (0.0-2.0); BASO % 0.3 % (0.0-3.0); EOS # 0.4 (0.0-0.7); EOS % 3.3 % (1.5-5.0); GRAN % 44.4 % (50.0-68.0); LYMPH # 4.7 (1.2-3.4); LYMPH % 44.7 % (22.0-35.0); MEAN CELL VOLUME 92.7 fL (80.0-105.0); MEAN CORPUSCULAR HEMOGLOBIN 30.3 pg (25.0-35.0); MEAN CORPUSCULAR HGB CONC 32.7 g/dl (31.0-37.0); MEAN PLATELET VOLUME 10.5 fl (7.0-11.0); MONO # 0.8 (0.1-0.6); MONO % 7.3 % (1.0-6.0); PLATELET COUNT 190 10^3/uL (120.0-450.0); RED CELL DISTRIBUTION WIDTH 14.1 % (11.5-14.5); WHITE BLOOD COUNT 10.6 10^3/ul (4.5-11.0)
[2017-03-23 07:05] LABS: INR 1.13 (0.93-1.08)
[2017-03-23 07:49] LABS: ALB/GLOB RATIO 1.1 (1.1-1.8); ALKALINE PHOSPHATASE 57 U/L (38-133); ALT/SGPT 31 U/L (7-56); AST/SGOT 22 U/L (15-39); BILIRUBIN,DIRECT 0.2 mg/dL (0.0-0.4); BILIRUBIN,TOTAL 0.8 mg/dL (0.2-1.3); BLOOD UREA NITROGEN 9 mg/dL (7-21); CALCIUM 8.2 mg/dL (8.4-10.5); CARBON DIOXIDE 25 mmol/L (21-33); CHLORIDE 109 mmol/L (98-107); GFR AFRICAN-AMERICAN > 60; GLUCOSE,RANDOM 108 mg/dL (70-110); POTASSIUM 4.4 mmol/L (3.6-5.0); SODIUM 141 mmol/L (132-148); TOTAL PROTEIN 6.7 g/dL (5.8-8.3)
--- NOTE | 2017-03-23 09:17 | PN ---
DATE: 03/23/2017 CARDIOLOGY FOLLOWUP SUBJECTIVE: The patient is in bed without distress. PHYSICAL EXAMINATION: VITAL SIGNS: Blood pressure is 116/61. The heart rate is in normal sinus rhythm in the 50s. NECK: Negative JVD. LUNGS: Without rales. HEART: Revealed S1, S2. EXTREMITIES: Without edema. LABORATORY DATA: Echocardiogram shows good LV function with no LV outflow obstruction. Troponins are negative x 2. No recurrent atrial fibrillation noted. IMPRESSION: 1. Syncope. 2. No evidence for a cardiac cause of her syncope. 3. History of paroxysmal atrial fibrillation, which the patient has remained in normal rhythm. 4. Hypertension. PLAN: Given these findings, there is no cardiac identifiable reason for her syncope. We will discontinue telemetry today. We will need to start physical therapy. Edson Garay MD cc: [id number] TT: 03/23/2017 09:16:31 Confirmation # [id number] Dictation # [id number] jn
[2017-03-23] MEDS: Enoxaparin 40 mg Syringe SC SCH (11:00)
[2017-03-23] MEDS: Magnesium Oxide 400 mg Tab UD PO SCH ×2 (11:00→18:23)
[2017-03-23] MEDS: Vancomycin 25 MG/ML PO SCH ×4 (11:00→22:38)
--- NOTE | 2017-03-23 11:02 | CARD ---
APPROVED REPORT EKG Measurement Heart [id number] <Conclusion> Sinus bradycardia with sinus arrhythmia Low voltage QRS Borderline ECG
--- NOTE | 2017-03-23 17:05 | MRI ---
PROCEDURE: MR Angiography of the neck without contrast HISTORY: CAROTID STENOSIS COMPARISON: None available. TECHNIQUE: 3D [id number] angiography of the neck was performed. Rotating maximum intensity projection images of the cervical carotid and vertebral arteries were generated. The origins of the common carotid arteries were not visualized, which is a limitation inherent to the non-contrast time of flight technique. FINDINGS: RIGHT CAROTID ARTERIES: Common Carotid Artery: Normal. Carotid Bifurcation: Normal. Internal Carotid Artery:Normal. External Carotid Artery (proximal branches): Normal. LEFT CAROTID ARTERIES: Common Carotid Artery: Normal. Carotid Bifurcation: Normal. Internal Carotid Artery:Normal. External Carotid Artery (proximal branches): Normal. VERTEBRAL ARTERIES: Right Vertebral Artery: Normal. Left Vertebral Artery: Small size left vertebral artery is noted. OTHER FINDINGS: None. IMPRESSION: No evidence of significant stenosis at the common and internal carotid arteries. Small size left vertebral artery.
--- NOTE | 2017-03-23 19:20 | PN ---
DATE: 03/23/2017 SUBJECTIVE: The patient is seen today lying in the bed, having breakfast. The patient does not appear to be in any distress. The patient is alert, awake, responsive, aphasic. PHYSICAL EXAMINATION: VITAL SIGNS: T-max afebrile. Telemetry shows sinus bradycardia, heart rate in the low 50s. Respirations 18-20, blood pressure 124/70, 130/74, respirations 18 -20, O2 sat 95%-98% average. INTAKE AND OUTPUT: Not available correctly. HEAD: Normocephalic, atraumatic. HEENT: Shows pinkish, pale conjunctivae, anicteric sclerae. No oropharyngeal lesion. NECK: Questionable soft carotid bruit. CHEST: Kyphosis. LUNGS: Shows occasional rhonchi upper lung soares anteriorly. CARDIOVASCULAR: S1, S2, regular rhythm. Questionable soft systolic murmur left sternal border. ABDOMEN: Slightly protuberant, positive bowel sounds. GENITALIA: Female. RECTAL: Deferred. EXTREMITIES: Shows trace swelling of the lower extremity, no pitting edema, no calf tenderness, no Shayna sign. SWETA stockings and SCDs are missing. MUSCULOSKELETAL: Shows a body mass index as per the nurse's notes and the summary sheet. Motor strength, there is slight weakness of the right side, which is very negligible. Gait examination not tested. PSYCHIATRIC: Not applicable. NEUROLOGIC: The patient is aphasic. Follows simple commands, does not appear to be in distress. Gait examination not tested. DIAGNOSTICS: Reviewed. CBC shows WBC count is normal today. Hemoglobin is 10.8, hematocrit is 32, platelets are normal. Chemistry, CMP, LFTs were reviewed. Hemoglobin A1c was prediabetic range. Vitamin D 25-hydroxy is low. PT is 1213, INR is subtherapeutic. Urine culture is growing gram-negative teo. The patient's MRI and MRA of the brain was reviewed, which shows chronic left middle cerebral artery distribution, left frontoparietal temporal lobe encephalomalacia and cerebral cortical atrophy. Carotid ultrasound shows right internal carotid artery 40%-60% stenosis and left internal carotid artery 40% stenosis, antegrade flow in vertebral arteries. IMPRESSION AND PLAN: 1. Syncope. 2. Status post hypotension. 3. Status post witnessed syncope. 4. Questionable and probable sepsis with gram-negative teo urinary tract infection and possible proctocolitis. 5. Leukocytosis with granulocytosis. 6. Sinus bradycardia, etiology undetermined. 7. History of hypertension. 8. 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 9. Mild right-sided hemiparesis. 10. Gait dysfunction. 11. Normocytic anemia. 12. Prediabetes. 13. Hypovitaminosis D. 14. History of cerebrovascular accident. 15. Prediabetes. 16. Hypovitaminosis D. 17. Dyslipidemia and hypercholesterolemia, hypertriglyceridemia. 18. Gram-negative teo urinary tract infection. 19. Hypertensive cardiovascular disease. 20. Status post leukocytosis with granulocytosis. 1. Syncope, etiology undetermined. 2. History of possible atrial fibrillation, Coumadin-dependent. 3. Lactic acidosis with possible sepsis. 4. Transient hypotension. 5. History of expressive aphasia secondary to left middle cerebral artery infarct. 6. Status post code sepsis. 7. Leukocytosis. 8. Subtherapeutic anticoagulation. 9. Lactic acidosis. 10. Dyslipidemia. 11. Mild hyperkalemia. 12. Hyperglycemia. 13. Questionable urinary tract infection with pyuria, microscopic hematuria, bacteriuria. 14. Left temporoparietal lobe and left basal ganglia chronic encephalomalacia secondary to left middle cerebral artery infarct. 15. Subcentimeter pulmonary nodules of the right and left lower lobe. 16. Small hiatal hernia. 17. Questionable gastroesophageal reflux with distal esophageal wall thickening. 18. Cholelithiasis. 19. Splenic hilum calcified, splenic artery aneurysm. 20. Right renal cyst. 21. Questionable proctocolitis with rectosigmoid wall thickening. 22. Degenerative joint disease of the spine. 23. Cholelithiasis. 24. Right hemiparesis. 25. History of Coumadin-dependent atrial fibrillation. 26. History of hypertension, history of cholelithiasis, history of type 2 diabetes mellitus, history of bilateral lower extremity venous stasis, history of depression, history of hypovitaminosis D, history of dyslipidemia, history of hyperuricemia. PLAN: At this time, the patient is currently on IV antibiotic and p.o. antibiotic. The patient is on IV Zosyn as per infectious disease recommendation. The patient is on p.o. vancomycin 4 times a day. The patient is on gastrointestinal and DVT prophylaxis. The patient's Coumadin is adjusted to 7.5 mg daily with daily labs. The patient has been ordered physical therapy and occupational therapy. The patient's medications are as per the MAR of today. The patient seen by infectious disease, cardiology, neurology. Their recommendations noted. Echo with Doppler and EEG results are pending. MRI/MRA of the brain and carotid Doppler are noted. The patient was ordered MRA of the neck and carotid, which was negative for any significant stenosis. The patient is seen by physical therapy. Their recommendation is noted. The patient's case is referred for discharge planning. The patient's daughter, Cher , was updated today about patient's clinical condition, diagnostic test results and recommendations by all physicians and stage electrician helper involved in the care of the patient. All questions and concerns answered to their satisfaction. In addition, the patient's daughter was advised that if the patient is not accepted to transitional care unit or subacute rehab, patient most likely will be discharged home with home visiting nurse, home health aide and home PT and that depends upon the duration of the IV antibiotic as per infectious disease. We are awaiting for repeat urine cultures, which are ordered, and stool cultures and stool for Clostridium difficile has been ordered. Dictated and electronically signed, not read. Cody Gastelum MD cc: [id number] TT: 03/23/2017 19:19:16 Confirmation # [id number] Dictation # [id number] paola HURST
[2017-03-24] MEDS: Piperacillin/Tazobact 3.375 gm 100 ML IVPB SCH ×2 (05:27→14:00)
[2017-03-24 08:03] LABS: ADD MANUAL DIFF? NO
[2017-03-24 08:11] LABS: BASO # 0.03 K/mm3 (0.0-2.0); BASO % 0.2 % (0.0-3.0); EOS # 0.3 (0.0-0.7); EOS % 2.1 % (1.5-5.0); GRAN # 8.18 (1.4-6.5); GRAN % 60.5 % (50.0-68.0); HEMATOCRIT 31.9 % (36.0-48.0); LYMPH # 4.2 (1.2-3.4); LYMPH % 31.3 % (22.0-35.0); MEAN CELL VOLUME 92.7 fL (80.0-105.0); MEAN CORPUSCULAR HEMOGLOBIN 30.8 pg (25.0-35.0); MEAN CORPUSCULAR HGB CONC 33.2 g/dl (31.0-37.0); MEAN PLATELET VOLUME 10.6 fl (7.0-11.0); MONO # 0.8 (0.1-0.6); MONO % 5.9 % (1.0-6.0); PLATELET COUNT 168 10^3/uL (120.0-450.0); RED CELL DISTRIBUTION WIDTH 14.1 % (11.5-14.5); WHITE BLOOD COUNT 13.5 10^3/ul (4.5-11.0)
[2017-03-24 08:22] LABS: ALB/GLOB RATIO 1.1 (1.1-1.8); ALKALINE PHOSPHATASE 60 U/L (38-133); ALT/SGPT 24 U/L (7-56); AST/SGOT 23 U/L (15-39); BILIRUBIN,DIRECT 0.3 mg/dL (0.0-0.4); BILIRUBIN,TOTAL 0.9 mg/dL (0.2-1.3); BLOOD UREA NITROGEN 7 mg/dL (7-21); CARBON DIOXIDE 25 mmol/L (21-33); CHLORIDE 109 mmol/L (98-107); GFR AFRICAN-AMERICAN > 60; GLUCOSE,RANDOM 118 mg/dL (70-110); MAGNESIUM 1.9 mg/dL (1.7-2.2); SODIUM 138 mmol/L (132-148); TOTAL PROTEIN 6.5 g/dL (5.8-8.3)
[2017-03-24 08:23] LABS: INR 1.18 (0.93-1.08); PARTIAL THROMBOPLASTIN TIME 29.9 Seconds (23.7-30.8)
[2017-03-24] MEDS: Enoxaparin 40 mg Syringe SC SCH (10:10)
[2017-03-24] MEDS: Magnesium Oxide 400 mg Tab UD PO SCH ×2 (10:11→17:58)
[2017-03-24] MEDS: Vancomycin 25 MG/ML PO SCH ×3 (10:17→17:58)
--- NOTE | 2017-03-24 15:33 | DS ---
The patient is for possible discharge to one of the subacute rehab places. The patient will be possibly discharged to subacute rehab where the patient's daughters are interested. The patient was declined by TCU because of the insurance issues. The patient is seen in room 374, bed 1 with patient's daughter, , at bedside. The patient is sitting up, having breakfast independently. The patient is aphasic, does not appear to be in any distress. Overnight nurse's notes were reviewed. No adverse events were documented. PHYSICAL EXAMINATION: VITAL SIGNS: T-max 98.3, heart rate 69-72, blood pressure 137/65, 153/69, 156/ 74, 129/60, 125/63, 124/63, respirations 20-21, O2 sat 95%-96%. Intake/output not documented correctly. HEAD: Normocephalic, atraumatic. HEENT: Shows pinkish conjunctivae, anicteric sclerae, No oropharyngeal lesion. NECK: No neck rigidity. CHEST: Kyphosis. LUNGS: Shows no rales, crackles, or wheezing. CARDIOVASCULAR: S1, S2, regular rhythm. ABDOMEN: Soft, positive bowel sounds. GENITALIA: Female. RECTAL: Deferred. EXTREMITIES: Shows no pitting edema, no calf tenderness, no Homans sign. MUSCULOSKELETAL: Shows a body mass index of 32. NEUROLOGIC: Cranial nerves II-XII limited. Gait examination could not be tested. There is some residual right-sided weakness. Positive aphasia noted. MRI of the brain was noted showing extensive encephalomalacia in the left hemisphere including the basal ganglia and left cerebral hemisphere atrophy with dilatation of the left lateral ventricle. CAT scan of the abdomen and pelvis were reviewed. Carotid ultrasound was noted, which shows right internal carotid artery 40%-59% stenosis and left internal carotid artery 20%-39% stenosis. MRA of the head was reviewed, which was negative for any aneurysm. The patient was ordered an MRA of the neck because of possible right internal carotid artery 40%-60% stenosis. MRA of the carotid was negative without any stenosis of the common and internal and external carotid arteries. The patient' s EKG from yesterday was reviewed, which shows sinus bradycardia with PACs. Echocardiogram was reviewed with ejection fraction of 61%, right ventricular systolic pressure 25 mmHg, moderately thickened aortic valve. FINAL IMPRESSION AND PLAN & DISCHARGE DIAGNOSES: 1. Syncope, etiology undetermined. 2. Transient hypotension. 3. History of possible atrial fibrillation, Coumadin-dependent. 4. Lactic acidosis with possible and questionable sepsis. 5. Questionable and possible systemic inflammatory response syndrome. 6. Gram-negative teo urinary tract infection. 7. Low-grade fever. 8. Sinus bradycardia. 9. History of hypertension. 10. Expressive aphasia. 11. Leukocytosis with granulocytosis, resolving. 12. Normocytic anemia. 13. Lactic acidosis. 14. Hyperkalemia. 15. Prediabetes with hemoglobin A1c of 6.2. 16. Hypertriglyceridemia and hypercholesterolemia with decreased HDL. 17. Hypovitaminosis D. 18. Gram-negative teo urinary tract infection with microscopic hematuria, pyuria, bacteriuria. 19. Left middle cerebral artery infarct with extensive left hemisphere encephalomalacia and left basal ganglia encephalomalacia with left-sided cerebral cortical atrophy and dilatation of the left lateral ventricle. 20. Left ventricular ejection fraction of 61% with moderately calcified aortic valve. 21. Bibasilar subcentimeter pulmonary nodule. 22. Small hiatal hernia. 23. Distal esophageal wall thickening. 24. Calcified cholelithiasis and gallstones. 25. Splenic artery calcified aneurysm at splenic hilum. 26. Right renal cyst. 27. Rectosigmoid wall thickening, questionable proctocolitis. 28. Bony demineralization and degenerative joint disease. 29. Cholelithiasis. 30. Calcified splenic artery aneurysm. 31. Right lower pole renal cyst. 32. Expressive aphasia. 33. Small left vertebral artery. 34. Expressive aphasia. 35. Cholelithiasis. 36. Hypertension. 37. History of depression and dyslipidemia. 38. Hypovitaminosis D. 39. Hyperuricemia. 40. Citrobacter Freundii Urinary Tract infection. 41. Bilateral Cerebral dysfunction on EEG. 1. Syncope. 2. Status post hypotension. 3. Status post witnessed syncope. 4. Questionable and probable sepsis with gram-negative teo urinary tract infection and possible proctocolitis. 5. Leukocytosis with granulocytosis. 6. Sinus bradycardia, etiology undetermined. 7. History of hypertension. 8. 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 9. Mild right-sided hemiparesis. 10. Gait dysfunction. 11. Normocytic anemia. 12. Prediabetes. 13. Hypovitaminosis D. 14. History of cerebrovascular accident. 15. Prediabetes. 16. Hypovitaminosis D. 17. Dyslipidemia and hypercholesterolemia, hypertriglyceridemia. 18. Gram-negative teo urinary tract infection. 19. Hypertensive cardiovascular disease. 20. Status post leukocytosis with granulocytosis. 1. Syncope, etiology undetermined. 2. History of possible atrial fibrillation, Coumadin-dependent. 3. Lactic acidosis with possible sepsis. 4. Transient hypotension. 5. History of expressive aphasia secondary to left middle cerebral artery infarct. 6. Status post code sepsis. 7. Leukocytosis. 8. Subtherapeutic anticoagulation. 9. Lactic acidosis. 10. Dyslipidemia. 11. Mild hyperkalemia. 12. Hyperglycemia. 13. Questionable urinary tract infection with pyuria, microscopic hematuria, bacteriuria. 14. Left temporoparietal lobe and left basal ganglia chronic encephalomalacia secondary to left middle cerebral artery infarct. 15. Subcentimeter pulmonary nodules of the right and left lower lobe. 16. Small hiatal hernia. 17. Questionable gastroesophageal reflux with distal esophageal wall thickening. 18. Cholelithiasis. 19. Splenic hilum calcified, splenic artery aneurysm. 20. Right renal cyst. 21. Questionable proctocolitis with rectosigmoid wall thickening. 22. Degenerative joint disease of the spine. 23. Cholelithiasis. 24. Right hemiparesis. 25. History of Coumadin-dependent atrial fibrillation. 26. History of hypertension, history of cholelithiasis, history of type 2 diabetes mellitus, history of bilateral lower extremity venous stasis, history of depression, history of hypovitaminosis D, history of dyslipidemia, history of hyperuricemia. PLAN: At this time, patient's daughter, , has met with the social services assistant, case management today and she has indicated that she is interested in her mother to go to subacute rehab for a few days. Physical therapy recommended TCU , but TCU will not be able to accept patient due to insurance issues. The patient's daughter was given information about subacute rehab and a referral was sent to [facility]. I have extensively explained patient's condition, diagnosis, test results and recommendations by all physicians involved in the care of the patient to the patient's daughter at length regarding treatment plan and diagnostic test results. The patient has been ordered a repeat urine culture, which has been uncollected since yesterday. The patient's stool Clostridium difficile is still pending, which is uncollected since yesterday. I will again order a repeat urine culture because of the gram-negative teo urinary tract infection. If patient is accepted to subacute rehab today, patient will be considered for discharge to subacute rehab. Otherwise, patient' s daughter has been extensively explained that patient will be going home if patient is not accepted to subacute rehab or transitional care unit, which she is in agreement with. CURRENT MEDICATIONS: Actigall 300 mg daily, Coumadin increased to 7.5 mg daily with daily PT/INR and daily labs. The patient is on Cozaar 50 mg daily, Ecotrin 81 mg daily, folic acid 1 mg daily, Lexapro 10 mg daily, Lipitor 40 mg daily, Lovenox 40 mg subQ daily until INR is therapeutic, magnesium oxide 400 twice a day, 0.9 normal saline at 125 which will be considered to be stopped. The patient is on Tylenol 650 q. 4, vancomycin 125 mg p.o. q.i.d., vitamin D3 2000 units daily, Zosyn 3.375 g IV q. 8, allopurinol 100 mg daily. The patient's EEG is still pending despite order since the . EEG was done on 03/22, but the results are still pending. If patient is discharged, patient will be discharged on medications as per the above medications. Dictated and electronically signed, not read. Time spent in the entire discharge process, more than 45 minutes. Dictated and electronically signed, not read. Time spent is more than 45 minutes. Cody Gastelum MD cc: [id number] TT: 03/24/2017 15:32:29 en MTDD
--- NOTE | 2017-03-24 17:01 | CP.PCM.PN ---
Subjective - Date & Time of Evaluation Date of Evaluation: 03/24/17 Time of Evaluation: 11:50 - Subjective Subjective: Comfortable, not in distress, no fevers overnight, no diarrhea. Objective - Vital Signs/Intake and Output Vital Signs (last 24 hours): Temp Pulse Resp BP Pulse Ox 99.4 F 72 21 135/65 95 03/24/17 08:03 03/24/17 10:07 03/24/17 08:03 03/24/17 10:07 03/24/17 08:03 Intake and Output: 03/24/17 03/24/17 06:59 18:59 Intake Total 725 Balance 725 - Medications Medications: Current Medications Acetaminophen (Tylenol 325mg Tab) 650 mg PO Q4H PRN PRN Reason: Fever >100.5 F Last Admin: 03/24/17 15:59 Dose: 650 mg Allopurinol (Zyloprim) 100 mg PO DAILY [facility] Last Admin: 03/24/17 10:12 Dose: 100 mg Aspirin (Ecotrin) 81 mg PO DAILY [facility] Last Admin: 03/24/17 10:08 Dose: 81 mg Atorvastatin Calcium (Lipitor) 40 mg PO DAILY [facility] Last Admin: 03/24/17 10:10 Dose: 40 mg Cholecalciferol (Vitamin D) 2,000 iu PO DAILY [facility] Last Admin: 03/24/17 10:11 Dose: 2,000 iu Enoxaparin Sodium (Lovenox) 40 mg SC DAILY [facility] PRN Reason: Protocol Last Admin: 03/24/17 10:10 Dose: 40 mg Escitalopram Oxalate (Lexapro) 10 mg PO DAILY [facility] Last Admin: 03/24/17 10:10 Dose: 10 mg Folic Acid (Folic Acid) 1 mg PO DAILY [facility] Last Admin: 03/24/17 10:09 Dose: 1 mg Piperacillin Sod/Tazobactam Sod (Zosyn 3.375 In Ns 100ml) 100 mls @ 200 mls/hr IVPB Q8 [facility] PRN Reason: Protocol Stop: 03/29/17 06:01 Last Admin: 03/24/17 05:27 Dose: 200 mls/hr Losartan Potassium (Cozaar) 50 mg PO DAILY [facility] Last Admin: 03/24/17 10:07 Dose: 50 mg Magnesium Oxide (Mag-Ox) 400 mg PO BID [facility] Last Admin: 03/24/17 10:11 Dose: 400 mg Ursodiol (Actigall) 300 mg PO DAILY [facility] Last Admin: 03/24/17 10:07 Dose: 300 mg Vancomycin HCl (Vancocin 25 Mg/Ml (Oral Use)) 125 mg PO QID [facility] PRN Reason: Protocol Last Admin: 03/24/17 10:17 Dose: 125 mg Warfarin Sodium (Coumadin) 7.5 mg PO 1800 [facility] Last Admin: 03/23/17 18:24 Dose: 7.5 mg - Labs Labs: 03/24/17 07:30 03/24/17 07:30 PT 12.7 Seconds (9.9-11.8) H 03/24/17 07:30 INR 1.18 (0.93-1.08) H 03/24/17 07:30 APTT 29.9 Seconds (23.7-30.8) 03/24/17 07:30 - Constitutional Appears: Non-toxic, No Acute Distress - Head Exam Head Exam: NORMAL INSPECTION - Neck Exam Neck Exam: absent: Meningismus - Respiratory Exam Respiratory Exam: Decreased Breath Sounds - Cardiovascular Exam Cardiovascular Exam: +S1, +S2 - GI/Abdominal Exam GI & Abdominal Exam: Soft. absent: Tenderness Assessment and Plan - Assessment and Plan (Free Text) Plan: Assessment Consider sepsis due to colitis, R/O C. diff. colitis consider Citrobacter UTI, lower tract Syncope, work up in progress TIA HTN chronic CHF atrial fibrillation DM obesity with BMI 32 Plan continue PO Bactrim and PO Vancomycin (day 2) pending stool for C. diff. Will monitor clinically while the patient is in the hospital
[2017-03-24 18:28] VITALS: BP 155/73; PULSE 74; RESP 22; TEMP 100; O2SAT 93
--- NOTE | 2017-03-24 18:28 | CP.PCM.PCO ---
Physician Communication Note - Physician Communication Note Physician Communication Note: syncope mostly likely to transient hypotension. EEG showed BCD, no sz. dc
--- NOTE | 2017-03-24 21:44 | EEG ---
DATE: 03/24/2017 History of syncope. PAST MEDICAL HISTORY: TIA, hypertension, congestive heart failure, diabetes, arthritis. MEDICATIONS: Lexapro. DESCRIPTION: Background activity of this tracing was composed of 7-8 cycles per second alpha-like ac tivity, small amount of beta activity 16-20 cycles per second was noted in this tracing. Drowsiness was composed of mixed beta and theta activity. Photic stimulation did not change the record. No par oxysmal activity was seen in the record. IMPRESSION: Bilateral cerebral dysfunction, mild, diffuse. Robert Gabe RAYMOND cc: [id number] TT: 03/24/2017 21:42:39 Confirmation # [id number] Dictation # [id number]
== END 2017-03-24 19:28 | DRG 872 ==
LOC: ED 18:48 → ERH 03-22 00:50 → 2RSO 03-22 04:26 → 3RSO 03-24 01:05
PROVIDERS: ADMIT Internal Medicine; ATTEND Internal Medicine
DX: A41.9 Sepsis, unspecified organism (principal); E11.65 Type 2 diabetes mellitus with hyperglycemia; N39.0 Urinary tract infection, site not specified; I69.351 Hemiplegia and hemiparesis following cerebral infarction affecting right dominant side; I11.0 Hypertensive heart disease with heart failure; I50.9 Heart failure, unspecified; I72.8 Aneurysm of other specified arteries; G93.89 Other specified disorders of brain; I48.0 Paroxysmal atrial fibrillation; R55 Syncope and collapse; E87.5 Hyperkalemia; E55.9 Vitamin D deficiency, unspecified; E78.5 Hyperlipidemia, unspecified; K80.20 Calculus of gallbladder without cholecystitis without obstruction; M47.9 Spondylosis, unspecified; E66.9 Obesity, unspecified; B96.89 Other specified bacterial agents as the cause of diseases classified elsewhere; K21.9 Gastro-esophageal reflux disease without esophagitis; D64.9 Anemia, unspecified; E78.1 Pure hyperglyceridemia; E78.00 Pure hypercholesterolemia, unspecified; K44.9 Diaphragmatic hernia without obstruction or gangrene; R91.1 Solitary pulmonary nodule; F32.9 Major depressive disorder, single episode, unspecified; N28.1 Cyst of kidney, acquired; I69.320 Aphasia following cerebral infarction; Z79.84 Long term (current) use of oral hypoglycemic drugs; Z79.01 Long term (current) use of anticoagulants; Z79.82 Long term (current) use of aspirin; Z68.32 Body mass index [BMI] 32.0-32.9, adult

== ENCOUNTER 2017-04-10 15:49 | Observation (INO) | payer MEDICARE ==
--- NOTE | 2017-04-10 16:46 | ED PDOC ---
Arrival/HPI - General Chief Complaint: Cough, Cold, Congestion Time Seen by Provider: 04/10/17 16:04 Historian: Family (Daughter) EM Caveat: Other (patient is nonverbal) - History of Present Illness Narrative History of Present Illness (Text): 04/10/17 16:04 A 86 year old female is brought into the emergency department, accompanied by daughter, for evaluation of abnormal chest xray at the [facility]. Daughter states the patient was last in the emergency department 18 days ago after a syncopal episode and the patient was found to have elevated WBC, UTI and colitis. Patient was sent to a rehab facility for recover. While at the facility she was told patient has pneumonia. Daughter states she was told by the facility the patient's cxr not improving, so she decided to called the patient PMD, who said to send the patient here. Daughter states the patient has a mild cough but no fever or other complaints. Daughter mentions, patient has a history of CVA and is nonverbal. PMD: Dr. Gastelum Past Medical History - Provider Review Nursing Documentation Reviewed: Yes - Tetanus Immunization Tetanus Immunization: Unknown - Cardiac Hx Cardiac Disorders: Yes Hx Atrial Fibrillation: Yes Hx Congestive Heart Failure: Yes Hx IL: Yes Hx Hypertension: Yes Hx Pacemaker: No - Pulmonary Hx Respiratory Disorders: No - Neurological Hx Neurological Disorder: Yes HX Cerebrovascular Accident: Yes (08-27-13) Other/Comment: nonverbal due to stroke but able to communicate through nodding and eye contact - HEENT Hx HEENT Disorder: Yes (WEARS RX GLASSES) - Renal Hx Renal Disorder: No - Endocrine/Metabolic Hx Endocrine Disorders: Yes Hx Diabetes Mellitus Type 2: Yes - Hematological/Oncological Hx Blood Disorders: No Hx Blood Transfusions: No Hx Blood Transfusion Reaction: No - Integumentary Hx Dermatological Disorder: No - Musculoskeletal/Rheumatological Hx Musculoskeletal Disorders: Yes Hx Arthritis: Yes Hx Falls: Yes - Gastrointestinal Hx Gastrointestinal Disorders: Yes (HEMORRHOIDS,POLYPS REMOVED) Hx Gastroesophageal Reflux: Yes - Genitourinary/Gynecological Hx Genitourinary Disorders: No - Psychiatric Hx Psychophysiologic Disorder: No Hx Emotional Abuse: No Hx Physical Abuse: No Hx Substance Use: No - Anesthesia Hx Anesthesia: Yes Hx Anesthesia Reactions: No Hx Malignant Hyperthermia: No - Suicidal Assessment Feels Threatened In Home Enviroment: No Family/Social History - Physician Review Nursing Documentation Reviewed: Yes Family/Social History: Unknown Family HX Smoking Status: Never Smoked Hx Alcohol Use: No Hx Substance Use: No Hx Substance Use Treatment: No Allergies/Home Meds Allergies/Adverse Reactions: Allergies No Known Allergies Allergy (Verified 04/10/17 16:03) Home Medications: Home Meds Medication Instructions Recorded Confirmed Aspirin [Aspirin EC] 81 mg PO DAILY 01/19/15 04/10/17 Allopurinol [Zyloprim] 100 mg PO DAILY 03/21/17 04/10/17 Atorvastatin [Lipitor] 40 mg PO DAILY 03/21/17 04/10/17 Furosemide [Lasix] 20 mg PO DAILY 03/21/17 04/10/17 Albuterol/Ipratropium [Duoneb 3 1 inh INH Q8 04/10/17 04/10/17 mg/0.5 mg (3 ml) UD] Cholecalciferol [Vitamin D 1000 IU] 1,000 iu PO DAILY 04/10/17 04/10/17 Enoxaparin [Lovenox] 40 mg SC DAILY 04/10/17 04/10/17 Losartan Potassium [Losartan 50 mg PO DAILY 04/10/17 04/10/17 Potassium] Warfarin [Coumadin] 7.5 mg PO DAILY 04/10/17 04/10/17 Review of Systems - Review of Systems Systems not reviewed;Unavailable: Other (patient is non verbal) Constitutional: absent: Fevers Respiratory: Cough Physical Exam Vital Signs Reviewed: Yes Vital Signs Temp Pulse Resp BP Pulse Ox 04/10/17 20:49 70 18 153/93 H 96 04/10/17 19:50 181/85 H 04/10/17 17:23 68 18 145/69 95 04/10/17 16:03 98.6 F 65 18 148/67 93 L Temperature: Afebrile Blood Pressure: Normal Pulse: Regular Respiratory Rate: Normal Appearance: Positive for: Well-Appearing, Non-Toxic, Comfortable Pain Distress: None Mental Status: No: Confused, Agitated, Lethargic, Comatose - Systems Exam Head: Present: Atraumatic, Normocephalic Pupils: Present: PERRL Extroacular Muscles: Present: EOMI Conjunctiva: Present: Normal Mouth: Present: Moist Mucous Membranes Neck: Present: Normal Range of Motion Respiratory/Chest: Present: Good Air Exchange, Rhonchi (bilaterally, left greater than right). No: Respiratory Distress, Accessory Muscle Use Cardiovascular: Present: Regular Rate and Rhythm, Normal S1, S2. No: Murmurs Abdomen: Present: Normal Bowel Sounds. No: Tenderness, Distention, Peritoneal Signs Back: Present: Normal Inspection Upper Extremity: Present: Normal Inspection. No: Cyanosis, Edema Lower Extremity: Present: Normal Inspection. No: Edema Neurological: Present: GCS=15 Skin: Present: Warm, Dry, Normal Color. No: Rashes Psychiatric: Present: Alert, Normal Insight, Normal Concentration Medical Decision Making ED Course and Treatment: EKG: Ordered, reviewed, and independently interpreted the EKG. Rate : 72 BPM Rhythm : NSR Interpretation : Normal axis, no acute ischemia 04/10/17 17:15 Chest X-ray: Creator : Maral Hall MD COMPARISON: Chest x-ray performed 03/21/17 FINDINGS: LUNGS: Interstitial prominence may reflect infection or edema. Please note that chest x-ray has limited sensitivity for the detection of pulmonary masses. PLEURA: No significant pleural effusion identified. No definite pneumothorax . CARDIOVASCULAR: Cardiomegaly. Dense atherosclerotic calcifications of the aortic knob. OSSEOUS STRUCTURES: Osseous demineralization. Degenerative changes of the spine and shoulders. Acromioclavicular arthropathy VISUALIZED UPPER ABDOMEN: Unremarkable. OTHER FINDINGS: None. IMPRESSION: Cardiomegaly. Interstitial prominence may reflect infection or edema. I lisette w Dr Gastelum who will admit. He came to see the pt in the ED - Lab Interpretations Lab Results: 04/10/17 16:55 04/10/17 16:55 Lab Results 04/10/17 17:35: Troponin I < 0.01, NT-Pro-B Natriuret Pep 327 04/10/17 16:55: Sodium 140, Chloride 101, Potassium 4.2, Carbon Dioxide 30, Anion Gap 13, BUN 12, Creatinine 0.7, Est GFR ( Amer) > 60, Est GFR (Non- Af Amer) > 60, Random Glucose 154 H, Calcium 9.1, Total Bilirubin 0.6, AST 31, ALT 27, Alkaline Phosphatase 98, Total Protein 8.1, Albumin 4.0, Globulin 4.1, Albumin/Globulin Ratio 1.0 L 04/10/17 16:55: pO2 46, VBG pH 7.35, VBG pCO2 58.0, VBG HCO3 32.0 H, VBG Total CO2 33.8 H, VBG O2 Sat (Calc) 83.7 H, VBG Base Excess 4.9 H, VBG Potassium 4.2, Sodium 140.0, Chloride 105.0, Glucose 164 H, Lactate 1.9, FiO2 21.0, Venous Blood Potassium 4.2 04/10/17 16:55: WBC 9.2 D, RBC 3.87, Hgb 11.8 L, Hct 36.2, MCV 93.5, MCH 30.5, MCHC 32.6, RDW 14.4, Plt Count 316, MPV 10.5, Gran % 39.7 L, Lymph % (Auto) 48.0 H, Deuel % (Auto) 9.5 H, Eos % (Auto) 2.4, Baso % (Auto) 0.4, Gran # 3.64, Lymph # 4.4 H, Deuel # 0.9 H, Eos # 0.2, Baso # 0.04 I have reviewed the lab results: Yes - RAD Interpretation Radiology Orders: 04/10/17 16:14 CHEST PORTABLE [RAD] Stat 04/10/17 17:34 CHEST W/O CONTRAST [CT] Stat 04/11/17 07:00 CHEST TWO VIEWS (PA/LAT) [RAD] Routine - Medication Orders Current Medication Orders: Allopurinol (Zyloprim) 100 mg PO DAILY [facility] Aspirin (Ecotrin) 81 mg PO DAILY [facility] Atorvastatin Calcium (Lipitor) 40 mg PO DAILY [facility] Cholecalciferol (Vitamin D) 2,000 iu PO DAILY [facility] EUGENIA Escitalopram Oxalate (Lexapro) 10 mg PO DAILY [facility] Folic Acid (Folic Acid) 1 mg PO DAILY [facility] EUGEN[facility] Furosemide (Lasix) 40 mg IVP DAILY [facility] Insulin Human Lispro (Humalog Low) 1 units SC ACHS [facility] EU[facility] PRN Reason: Protocol Levalbuterol HCl (Xopenex) 0.63 mg IH Q6H [facility] Last Admin: 04/10/17 19:59 Dose: 0.63 mg Losartan Potassium (Cozaar) 50 mg PO DAILY [facility] Magnesium Oxide (Mag-Ox) 400 mg PO BID [facility] Potassium Chloride (K-Dur 20 Meq Er Tab) 20 meq PO DAILY [facility] EUGENIA Ursodiol (Actigall) 300 mg PO DAILY [facility] Warfarin Sodium (Coumadin) 7.5 mg PO DAILY MARIA EUGENIA PRN Reason: Protocol Discontinued Medications Furosemide (Lasix) 40 mg IVP STAT STA Stop: 04/10/17 19:34 Last Admin: 04/10/17 19:50 Dose: 40 mg Levalbuterol HCl (Xopenex) Confirm Administered Dose 0.63 mg .ROUTE .STK-MED ONE Stop: 04/10/17 19:52 Last Admin: 04/10/17 19:59 Dose: - Scribe Statement The provider has reviewed the documentation as recorded by the Carmine Dela Cruz Provider Scribe Attestation: All medical record entries made by the Carmine were at my direction and personally dictated by me. I have reviewed the chart and agree that the record accurately reflects my personal performance of the history, physical exam, medical decision making, and the department course for this patient. I have also personally directed, reviewed, and agree with the discharge instructions and disposition. Disposition/Present on Arrival - Present on Arrival Any Indicators Present on Arrival: No History of DVT/PE: No History of Uncontrolled Diabetes: No Urinary Catheter: No History of Decub. Ulcer: No History Surgical Site Infection Following: None - Disposition Have Diagnosis and Disposition been Completed?: Yes Diagnosis: CHF exacerbation Disposition: HOSPITALIZED Disposition Time: 19:42 Condition: STABLE
[2017-04-10 17:08] LABS: ADD MANUAL DIFF? NO
[2017-04-10 17:12] LABS: VENOUS BLOOD GAS BASE EXCESS 4.9 mmol/L (0.0-2.0); VENOUS BLOOD PH 7.35 (7.32-7.43)
[2017-04-10 17:15] LABS: BASO # 0.04 K/mm3 (0.0-2.0); BASO % 0.4 % (0.0-3.0); EOS # 0.2 (0.0-0.7); EOS % 2.4 % (1.5-5.0); GRAN # 3.64 (1.4-6.5); GRAN % 39.7 % (50.0-68.0); HEMATOCRIT 36.2 % (36.0-48.0); LYMPH # 4.4 (1.2-3.4); MEAN CELL VOLUME 93.5 fL (80.0-105.0); MEAN CORPUSCULAR HEMOGLOBIN 30.5 pg (25.0-35.0); MEAN CORPUSCULAR HGB CONC 32.6 g/dl (31.0-37.0); MEAN PLATELET VOLUME 10.5 fl (7.0-11.0); MONO # 0.9 (0.1-0.6); MONO % 9.5 % (1.0-6.0); PLATELET COUNT 316 10^3/uL (120.0-450.0); RED CELL DISTRIBUTION WIDTH 14.4 % (11.5-14.5); WHITE BLOOD COUNT 9.2 10^3/ul (4.5-11.0)
--- NOTE | 2017-04-10 17:15 | RAD ---
HISTORY: follow up COMPARISON: Chest x-ray performed 03/21/17 TECHNIQUE: Chest, one view. FINDINGS: LUNGS: Interstitial prominence may reflect infection or edema. Please note that chest x-ray has limited sensitivity for the detection of pulmonary masses. PLEURA: No significant pleural effusion identified. No definite pneumothorax . CARDIOVASCULAR: Cardiomegaly. Dense atherosclerotic calcifications of the aortic knob. OSSEOUS STRUCTURES: Osseous demineralization. Degenerative changes of the spine and shoulders. Acromioclavicular arthropathy. VISUALIZED UPPER ABDOMEN: Unremarkable. OTHER FINDINGS: None. IMPRESSION: Cardiomegaly. Interstitial prominence may reflect infection or edema.
[2017-04-10 17:21] LABS: ALKALINE PHOSPHATASE 98 U/L (38-133); ALT/SGPT 27 U/L (7-56); AST/SGOT 31 U/L (15-39); BILIRUBIN,TOTAL 0.6 mg/dL (0.2-1.3); BLOOD UREA NITROGEN 12 mg/dL (7-21); CALCIUM 9.1 mg/dL (8.4-10.5); CARBON DIOXIDE 30 mmol/L (21-33); CHLORIDE 101 mmol/L (98-107); GFR AFRICAN-AMERICAN > 60; GLUCOSE,RANDOM 154 mg/dL (70-110); POTASSIUM 4.2 mmol/L (3.6-5.0); SODIUM 140 mmol/L (132-148); TOTAL PROTEIN 8.1 g/dL (5.8-8.3)
--- NOTE | 2017-04-10 18:45 | CT ---
PROCEDURE: CT Chest without contrast HISTORY: eval edema vs infection COMPARISON: April 10, 2017. Single-view chest TECHNIQUE: Contiguous axial images were obtained through the chest without intravenous contrast enhancement. Sagittal and coronal reconstructions were performed. Maximum intensity projection (MIP) reconstructed images in the following planes: Axial projection only Radiation dose (DLP): 698.02 mGy-cm. This CT exam was performed using one or more of the following dose reduction techniques: Automated exposure control, adjustment of the mA and/or kV according to patient size, and/or use of iterative reconstruction technique. FINDINGS: LUNGS: No focal infiltrates. Increased interstitial markings and thickening of interlobular septa. Findings consistent with pulmonary vascular congestion. MEDIASTINUM: Unremarkable thoracic aorta. No aneurysm. Cardiomegaly. No pericardial abnormalities. Main pulmonary artery unremarkable. No vascular congestion. No lymphadenopathy. PLEURA: Trace bilateral pleural effusions BONES: No fracture. No destructive lesion. UPPER ABDOMEN: Cholelithiasis without CT evidence of acute cholecystitis. OTHER FINDINGS: None. IMPRESSION: Cardiomegaly, findings consistent with interstitial cardiogenic edema. Trace bilateral pleural effusions and dependent compressive atelectasis. No focal infiltrates or other findings to suggest pneumonia.
[2017-04-10 19:00] LABS: TROPONIN I < 0.01 ng/mL
[2017-04-10] MEDS ORDERED: Levalbuterol 0.63 MG/3 ML Inhal Soln UD ONE (19:51)
[2017-04-10] MEDS: Levalbuterol 0.63 MG/3 ML Inhal Soln UD IH SCH (19:59)
--- NOTE | 2017-04-10 20:32 | CARD ---
APPROVED REPORT EKG Measurement Heart [id number] <Conclusion> Sinus rhythm with occasional premature ventricular complexes Abnormal ECG
[2017-04-10 21:02] LABS: INR 1.68 (0.93-1.08); PARTIAL THROMBOPLASTIN TIME 36.4 Seconds (23.7-30.8)
--- NOTE | 2017-04-10 22:13 | HP ---
The patient is an 86-year-old female who has been at [facility] for rehab. Accor ding to the patient's daughter, the patient has been treated by the doctors there for suspicions of p neumonia and was started on antibiotic, but without resolution of cough, cold and shortness of breath symptoms and the patient's daughter requested the patient to be transferred to the [facility] for further evaluation. REVIEW OF SYSTEMS: A 13-system review is positive for cough, congestion, shortness of breath. CODE STATUS: Full code. LIVING WILL AND ADVANCED DIRECTIVE: None. ALLERGIES: None. HEIGHT: 5 feet 5 inches. BODY MASS INDEX: 26. HOME MEDICATIONS: Actigall, DuoNeb nebulizer, allopurinol 100 mg, aspirin 81 daily, Lipitor 40 daily , vitamin D3 2000 units daily, Lovenox 40 mg subQ daily, Lexapro 10 mg daily, folic acid 1 mg daily, Lasix mg daily, Cozaar 50 mg daily, magnesium oxide 400 mg twice a day, Actigall 300 mg daily, Coumadin 7.5 mg daily, but bridging with the Lovenox. PHYSICAL EXAMINATION: GENERAL: The patient is seen in stretcher #14 in the Emergency Room. The patient's daughter is at [facility]. The patient is lying in the bed. The patient is aphasic. VITAL SIGNS: T-max 98.6, pulse 65 to 68 to 70, blood pressure 148/67, 145/69, 143/93, respiration 18 , O2 sat 93% to 95% to 96%. HEAD: Normocephalic, atraumatic. HEENT: Shows pinkish, pale conjunctivae, anicteric sclerae. The patient has aphasia. NECK: Questionable soft carotid bruit bilaterally. CHEST: Kyphosis. LUNGS: Shows positive creps, rhonchi, crackles, rales bilaterally. CARDIOVASCULAR: Shows S1, S2, regular rhythm. Questionable soft systolic murmur left sternal border , right second intercostal space. ABDOMEN: Soft, positive bowel sounds, slightly protuberant abdomen. GENITALIA: Female. RECTAL: Deferred. EXTREMITIES: Shows trace pitting edema of the lower extremity, no calf tenderness, no Homans sign. NEUROLOGIC: The patient is alert, awake, responsive, aphasic. Follows commands. VASCULAR: Palpable pulses. PSYCHIATRIC: Not applicable. MUSCULOSKELETAL: Shows a body mass index of 26.6. DIAGNOSTICS: WBC 9.2, hemoglobin and hematocrit 11.8 and 36.2, platelet 316, granulocytes. PT/PTT 1 8.1/36.4, INR 1.6. Sodium 140, potassium 4.2, chloride 101, CO2 30, anion gap 13, BUN 12, creatinine 0.7, GFR greater than 60, glucose 154, calcium 9.1. LFTs are normal. Troponin less than 0.01. BNP is 327, which is normal. The patient had a chest x-ray and then a CAT scan of the chest was done be cause of the inconclusive chest x-ray results. CT of the chest shows increased interstitial markings and thickening of the interlobular septa consistent with pulmonary vascular congestion, cardiomegaly , no pneumonia noted. Cholelithiasis noted without cholecystitis. No infiltrate or finding suggesti ve of pneumonia. EKG was done in the Emergency Room and shows sinus rhythm, heart rate in the 70s. The patient was seen in the Emergency Room. The patient was given Lasix 40 IV, Xopenex nebulizer was given and the patient was advised to be admitted. IMPRESSION: 1. Congestive heart failure. 2. Increased interstitial marking with thickening of the interlobular septa consistent with congesti ve heart failure and pulmonary vascular congestion. 3. Cardiomegaly. 4. Bilateral pleural effusion. 5. Asymptomatic cholelithiasis. 6. Bibasilar atelectasis. 7. Cardiomegaly. 8. Interstitial cardiogenic edema and pulmonary edema. 9. Aphasia. 10. Hypertension. 11. Transient hypoxemia. 12. Normocytic anemia. 13. Lymphocytosis. 14. Hyperglycemia. 15. History of hyperuricemia. 16. History of dyslipidemia. 17. History of hypovitaminosis D. 18. History of depression. 19. History of cholelithiasis. 20. History of hypomagnesemia. PLAN: At this time, patient is to be admitted to observation telemetry. The patient has been ordere d repeat , CMP, magnesium, PT/INR. The patient has been resumed on Actigall 300 mg p.o. daily, Coumadin 7.5 daily, Cozaar 50 mg daily, Ecotrin 81 mg daily, folic acid 1 mg daily, Humalog low dose sliding scale coverage a.c. and at bedtime, K-Dur 20 mEq daily, Lasix 40 mg IV daily, Lexapro 10 mg d aily, Lipitor 40 mg daily, magnesium oxide 400 mg twice a day, vitamin D3 2000 units daily, Xopenex n ebulizer 0.63 mg every 6 hours scheduled, allopurinol 100 mg daily. The patient has been ordered a r epeat chest x-ray PA and lateral in the morning, fingerstick blood sugar a.c. and at bedtime, out of bed, SWETA stockings, SCDs ordered. The patient's condition, diagnosis, need for hospitalization, need for further diagnostic and therapeutic intervention were discussed and explained to the patient and the patient's daughter who was present at the bedside. All the details were discussed and explained to the patient's daughter and the patient . All questions and concerns answered to their satisf action. Dictated and electronically signed, not read. Cody Gastelum MD cc: [id number] TT: 04/10/2017 22:13:24 pollo
[2017-04-10] MEDS: Insulin Lispro (humaLOG) LOW Coverage SC SCH (22:41)
[2017-04-11 01:07] VITALS: RESP 20
[2017-04-11 02:10] VITALS: BMI 26.6
[2017-04-11 06:41] LABS: INR 1.78 (0.93-1.08); PARTIAL THROMBOPLASTIN TIME 36.4 Seconds (23.7-30.8)
[2017-04-11 06:55] LABS: ALKALINE PHOSPHATASE 97 U/L (38-133); ALT/SGPT 24 U/L (7-56); AST/SGOT 35 U/L (15-39); BILIRUBIN,TOTAL 0.6 mg/dL (0.2-1.3); BLOOD UREA NITROGEN 11 mg/dL (7-21); CALCIUM 8.6 mg/dL (8.4-10.5); CARBON DIOXIDE 27 mmol/L (21-33); CHLORIDE 102 mmol/L (98-107); GFR AFRICAN-AMERICAN > 60; GLUCOSE,RANDOM 111 mg/dL (70-110); MAGNESIUM 1.8 mg/dL (1.7-2.2); POTASSIUM 3.9 mmol/L (3.6-5.0); SODIUM 139 mmol/L (132-148); TOTAL PROTEIN 7.6 g/dL (5.8-8.3)
[2017-04-11] MEDS: Insulin Lispro (humaLOG) LOW Coverage SC SCH ×3 (07:55→16:17)
[2017-04-11] MEDS: Levalbuterol 0.63 MG/3 ML Inhal Soln UD IH SCH ×2 (08:57→13:52)
[2017-04-11] MEDS: Magnesium Oxide 400 mg Tab UD PO SCH ×2 (09:48→17:13)
[2017-04-11] MEDS ORDERED: Potassium Chloride 20 mEq ER Tab PO SCH (10:00)
[2017-04-11 11:53] VITALS: TEMP 97.7
--- NOTE | 2017-04-11 13:23 | RAD ---
HISTORY: CHF COMPARISON: 04/10/2017 TECHNIQUE: Chest PA and lateral FINDINGS: LUNGS: There is improvement in vascular and interstitial congestion PLEURA: No significant pleural effusion identified. No pneumothorax apparent. CARDIOVASCULAR: Normal. OSSEOUS STRUCTURES: No significant abnormalities. VISUALIZED UPPER ABDOMEN: Normal. OTHER FINDINGS: None. IMPRESSION: There is improvement in vascular and interstitial congestion
[2017-04-11 15:20] VITALS: O2SAT 96
[2017-04-11 17:33] VITALS: BP 123/58; PULSE 60
--- NOTE | 2017-04-11 23:07 | DS ---
DATE OF ADMISSION: 04/10/2017 DATE OF DISCAHRGE: 04/11/2017 The patient is seen today in room 276, bed 1. The patient is out of bed to chair. PHYSICAL EXAMINATION: VITAL SIGNS: Telemetry shows sinus rhythm in 60s and 70s. Overnight nurse's notes were reviewed. N o adverse events were documented. T-max 97.7. Telemetry sinus rhythm. Blood pressure 123/58, 110/4 9, 147/62, 135/55, 160/70, 161/63. Respirations 18-20. O2 sat 96, 94, 90, 92, 98, 96. Intake/outpu t: Not documented correctly. HEAD: Normocephalic, atraumatic. HEENT: Shows pinkish conjunctivae. Anicteric sclerae. No oropharyngeal lesion. The patient has ex pressive aphasia. NECK: Soft carotid bruit. CHEST: Kyphosis. LUNGS: Shows decreasing crackles. Decreasing rales, rhonchi. Decreasing creps. CARDIOVASCULAR: Shows S1, S2, regular rhythm. ABDOMEN: Soft, positive bowel sounds. GENITALIA: Female. RECTAL: Deferred. EXTREMITIES: Lower extremity examination shows no pitting edema, no calf tenderness, no Homans' sign . NEUROLOGIC: The patient is alert, awake, responsive. Moves upper and lower extremity without assist ance. GAIT: Not tested. VASCULAR: Palpable pulses. PSYCHIATRIC: Not applicable. DIAGNOSTICS: . Sodium 139, potassium 3.9, chloride 102, CO2 of 27, anion gap 14, BUN 11, creat inine 0.6, GFR greater than 60. Fingerstick blood sugar 101, 256, 136, 111, 154. Calcium 8.6, magne sium 1.8. LFTs are normal. Troponin is negative. Blood cultures no growth. The patient had a repe at chest x-ray done to compare from previous, which shows significant improvement of vascular and int erstitial congestion. FINAL IMPRESSION, PLAN, AND DISCHARGE DIAGNOSES: 1. Congestive heart failure with increased interstitial marking and thickening of the interlobular _ ____, consistent with congestive heart failure and pulmonary vascular congestion and interstitial car diogenic edema and pulmonary edema (resolving). 2. Hypertension. 3. Transient bradycardia, asymptomatic. 4. Type 2 non-insulin requiring diabetes mellitus. 5. Normocytic anemia. 6. Questionable history of atrial fibrillation, Coumadin dependent. 7. Expressive aphasia. 8. Resolving and improving vascular interstitial congestion. 9. Cholelithiasis. 10. Depression. 11. Hypomagnesemia. 12. Hypovitaminosis D. 13. Hyperuricemia. PLAN: At this time, the patient is cleared for discharge because of the significant improvement in t he patient's clinical condition. DISCHARGE MEDICATIONS: The patient is discharged on following medication: 1. Allopurinol 100 mg daily. 2. Ecotrin 81 mg daily. 3. Lipitor 40 mg daily. 4. Vitamin D3 2000 international units daily. 5. Lexapro 10 mg daily. 6. Folic acid 1 mg daily. 7. Lasix 40 mg p.o. daily. 8. Xopenex 0.63 mg every 6 hours. 9. Losartan 50 mg daily. 10. Magnesium oxide 400 mg twice a day. 11. K-Dur 20 mEq daily. 12. Actigall 300 mg daily. 13. Coumadin 7.5 mg daily. The patient is discharged home under the care of the patient's daughter, Junaid . The patien t is discharged home. The patient is to follow up with Dr. Gastelum within 1 week with all medications. Copy of diet to the patient upon discharge. The patient and the daughter is advised to resume all home medications as per ambulatory orders plus new prescriptions, which are given upon discharge. e patient's case is referred to [facility], [facility] home health aide, home PT. Cody Gastelum MD cc: [id number] TT: 04/11/2017 23:07:01 pollo
== END 2017-04-11 19:18 | disposition home health service (06) ==
LOC: ED 15:49 → ERH 19:42 → 2RSO 23:14
PROVIDERS: ADMIT Internal Medicine; ATTEND Internal Medicine
DX: I11.0 Hypertensive heart disease with heart failure (principal); I50.9 Heart failure, unspecified; K80.20 Calculus of gallbladder without cholecystitis without obstruction; D64.9 Anemia, unspecified; E11.9 Type 2 diabetes mellitus without complications; E83.42 Hypomagnesemia; E55.9 Vitamin D deficiency, unspecified; J98.11 Atelectasis; E87.5 Hyperkalemia; F32.9 Major depressive disorder, single episode, unspecified; D72.820 Lymphocytosis (symptomatic); R47.01 Aphasia; R00.1 Bradycardia, unspecified; E79.0 Hyperuricemia without signs of inflammatory arthritis and tophaceous disease; Z79.82 Long term (current) use of aspirin; Z79.01 Long term (current) use of anticoagulants
CPT/HCPCS: 36415; 71010; 71020; 71250; 80053; 82803; 82948; 83735; 83880; 84484; 85025; 85610; 85730; 87040; 93005; 94640; 96372; 96374; 99284; G0378; J1940

== ENCOUNTER 2019-03-25 11:31 | Emergency (ER) | payer MEDICARE ==
[2019-03-25 11:32] VITALS: BMI 26.6
[2019-03-25 11:44] VITALS: RESP 18
--- NOTE | 2019-03-25 12:07 | ED PDOC ---
Arrival/HPI - General Chief Complaint: Syncope Time Seen by Provider: 03/25/19 11:42 Historian: Family - History of Present Illness Narrative History of Present Illness (Text): 03/25/19 12:05 88 year old female, with past medical history of hypertension, CHF, diabetes type 2, and CVA (08/27/13) presents to emergency department, accompanied by daughter, for evaluation after a lightheadedness episode this morning. Daughter states patient was getting when up from bed when she began to feel dizzy and fell. Nephew, who was at the house, reported that the patient seemed disoriented initially. Daughter notes patient was clammy and pale when EMS arrived. She states patient is currently feeling fine and denies LOC, trauma, pain, or any other somatic complaints at this time. Daughter also mentions patient is nonverbal and notes that she is currently on warfarin. PMD: Time/Duration: Prior to Arrival Symptom Onset: Gradual Symptom Course: Improving Activities at Onset: Light Context: Home Past Medical History - Provider Review Nursing Documentation Reviewed: Yes - Tetanus Immunization Tetanus Immunization: Unknown - Cardiac Hx Cardiac Disorders: Yes Hx Congestive Heart Failure: Yes Hx Hypertension: Yes Hx Pacemaker: No Hx Peripheral Edema: Yes (trace ble edema) - Pulmonary Hx Respiratory Disorders: Yes Hx Pneumonia: Yes - Neurological Hx Neurological Disorder: Yes HX Cerebrovascular Accident: Yes (08-27-13) Hx Dizziness: Yes Hx Transient Ischemic Attacks (TIA): Yes Other/Comment: nonverbal due to stroke but able to communicate through nodding and eye contact - HEENT Hx HEENT Disorder: Yes (WEARS RX GLASSES) - Renal Hx Renal Disorder: No - Endocrine/Metabolic Hx Endocrine Disorders: Yes Hx Diabetes Mellitus Type 1: No Hx Diabetes Mellitus Type 2: Yes - Hematological/Oncological Hx Blood Disorders: Yes (RECTAL BLEED) - Integumentary Hx Dermatological Disorder: No - Musculoskeletal/Rheumatological Hx Musculoskeletal Disorders: Yes Hx Arthritis: Yes Hx Falls: Yes Hx Unsteady Gait: Yes - Gastrointestinal Hx Gastrointestinal Disorders: Yes (HEMORRHOIDS,POLYPS REMOVED) Hx Gastroesophageal Reflux: Yes - Genitourinary/Gynecological Hx Genitourinary Disorders: No - Psychiatric Hx Psychophysiologic Disorder: No Hx Emotional Abuse: No Hx Physical Abuse: No Hx Substance Use: No - Anesthesia Hx Anesthesia: Yes Hx Anesthesia Reactions: No Hx Malignant Hyperthermia: No - Suicidal Assessment Feels Threatened In Home Enviroment: No Family/Social History - Physician Review Nursing Documentation Reviewed: Yes Family/Social History: No Known Family HX Smoking Status: Never Smoked Hx Alcohol Use: No Hx Substance Use: No Hx Substance Use Treatment: No Allergies/Home Meds Allergies/Adverse Reactions: Allergies No Known Allergies Allergy (Verified 04/10/17 16:03) Home Medications: Home Meds Medication Instructions Recorded Confirmed Aspirin [Aspirin EC] 81 mg PO DAILY 01/19/15 04/10/17 Atorvastatin [Lipitor] 40 mg PO DAILY 03/21/17 04/10/17 Review of Systems - Physician Review All systems were reviewed & negative as marked: Yes - Review of Systems Respiratory: absent: SOB Cardiovascular: absent: Chest Pain Physical Exam - Physical Exam Narrative Physical Exam (Text): 03/25/19 12:04 Constitutional: No acute distress. Head: Normocephalic. Atraumatic. Eyes: PERRL. ENT: Moist mucous membranes. Neck: No midline tenderness Cardiovascular: Regular rate. Chest: No tenderness. Respiratory: Clear to auscultation bilaterally. GI: Soft. Nontender. Nondistended. Back: No midline tenderness Musculoskeletal: Full ROM x4 Skin: No rash. Neurologic: Alert, no focal deficit. Vital Signs Reviewed: Yes Vital Signs Temp Pulse Resp BP Pulse Ox 03/25/19 11:44 98.2 F 72 18 119/48 L 95 Temperature: Afebrile Blood Pressure: Normal Pulse: Regular Respiratory Rate: Normal Appearance: Positive for: Well-Appearing, Non-Toxic, Comfortable Pain Distress: None Mental Status: Positive for: Alert and Oriented X 3 Finger Stick Blood Glucose: 178 Medical Decision Making ED Course and Treatment: 03/25/19 12:19 Impression: 88 year old female presents to emergency department for evaluation after lightheadedness episode prior to arrival. Plan: -- CT Head -- EKG -- Labs -- Chest X-ray 03/25/19 12:41 EKG: Ordered, reviewed, and independently interpreted the EKG. Rate : 72 BPM Rhythm : NSR Interpretation : No ST t-wave changes IMPRESSION: No acute intracranial pathology. Age-related changes. 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 No significant interval change. Discussed case with Dr. Gastelum who states he can see patient in office tomorrow. Offered hospitalization to patient but daughter declined and will take patient to see Dr. Gastelum tomorrow. - RAD Interpretation Radiology Orders: 03/25/19 11:57 HEAD W/O CONTRAST [CT] Stat CHEST PORTABLE [RAD] Stat - Scribe Statement The provider has reviewed the documentation as recorded by the Scribe Ramon Restrepo All medical record entries made by the Scribe were at my direction and personally dictated by me. I have reviewed the chart and agree that the record accurately reflects my personal performance of the history, physical exam, medical decision making, and the department course for this patient. I have also personally directed, reviewed, and agree with the discharge instructions and disposition. Disposition/Present on Arrival - Present on Arrival Any Indicators Present on Arrival: No History of DVT/PE: No History of Uncontrolled Diabetes: No Urinary Catheter: No History of Decub. Ulcer: No History Surgical Site Infection Following: None - Disposition Have Diagnosis and Disposition been Completed?: Yes Diagnosis: Lightheadedness Disposition: HOME/ ROUTINE Disposition Time: 13:56 Patient Plan: Discharge Condition: STABLE Discharge Instructions (ExitCare): Syncope (Fainting) Referrals: Cody Gastelum MD [Primary Care Provider] - Follow up with primary Forms: Qello (Czech)
[2019-03-25 12:37] LABS: BASO # 0.02 K/mm3 (0.0-2.0); BASO % 0.1 % (0.0-3.0); HEMOGLOBIN 12.6 g/dL (12.0-16.0); LYMPH # 4.8 (1.2-3.4); LYMPH % 20.2 % (22.0-35.0); MEAN CELL VOLUME 87.6 fl (80.0-105.0); MEAN CORPUSCULAR HEMOGLOBIN 28.5 pg (25.0-35.0); MEAN CORPUSCULAR HGB CONC 32.6 g/dl (31.0-37.0); MEAN PLATELET VOLUME 10.1 fl (7.0-11.0); MONO # 1.2 (0.1-0.6); MONO % 5.1 % (1.0-6.0); RBC 4.42 10^6/uL (3.5-6.1); RED CELL DISTRIBUTION WIDTH 13.8 % (11.5-14.5); WHITE BLOOD COUNT 23.8 10^3/uL (4.5-11.0)
[2019-03-25 12:44] LABS: ALT/SGPT 40 U/L (7-56); AST/SGOT 36 U/L (14-36); BLOOD UREA NITROGEN 13 mg/dL (7-21); CALCIUM 8.8 mg/dL (8.4-10.5); GFR NON-AFRICAN AMERICAN > 60
[2019-03-25 12:46] LABS: INR 1.49; PARTIAL THROMBOPLASTIN TIME 35.6 Seconds (26.9-38.3); PROTHROMBIN TIME 16.8 SECONDS (9.4-12.5)
[2019-03-25 12:55] LABS: B-TYPE NATRIURETIC PEPTIDE 808 pg/mL (0-450); TROPONIN I < 0.01 ng/mL
--- NOTE | 2019-03-25 13:26 | CT ---
Date of service: 03/25/2019 PROCEDURE: CT HEAD WITHOUT CONTRAST. HISTORY: fall COMPARISON: CT head dated 03/21/2017. TECHNIQUE: Axial computed tomography images were obtained through the head/brain without intravenous contrast. Radiation dose: Total exam DLP = 820.77 mGy-cm. This CT exam was performed using one or more of the following dose reduction techniques: Automated exposure control, adjustment of the mA and/or kV according to patient size, and/or use of iterative reconstruction technique. FINDINGS: HEMORRHAGE: No intracranial hemorrhage. BRAIN: No mass effect or edema. Atrophy. Chronic microvascular ischemic changes. Old left temporoparietal lobe/MCA territory infarction. VENTRICLES: Unremarkable. No hydrocephalus. CALVARIUM: Right occipital arachnoid granulation. Otherwise, unremarkable. PARANASAL SINUSES: Unremarkable as visualized. No significant inflammatory changes. MASTOID AIR CELLS: Unremarkable as visualized. No inflammatory changes. OTHER FINDINGS: None. IMPRESSION: No acute intracranial pathology. Age-related changes. 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 No significant interval change.
--- NOTE | 2019-03-25 13:27 | RAD ---
Date of service: 03/25/2019 HISTORY: fall COMPARISON: Chest radiograph dated 04/11/2017. TECHNIQUE: 1 view obtained. FINDINGS: LUNGS: Stable chronic prominence of the bilateral interstitial markings with superimposed pulmonary vascular congestion not excluded. No focal consolidation. PLEURA: No significant pleural effusion identified, no pneumothorax apparent. CARDIOVASCULAR: Aortic atherosclerotic calcifications. Cardiomediastinal silhouette stably enlarged. OSSEOUS STRUCTURES: Unchanged. VISUALIZED UPPER ABDOMEN: Normal. OTHER FINDINGS: None. IMPRESSION: No active disease.
[2019-03-25 14:12] VITALS: TEMP 98.1
[2019-03-25 14:42] VITALS: BP 112/57; PULSE 78; O2SAT 98
--- NOTE | 2019-03-26 11:05 | CARD ---
APPROVED REPORT Date of service: 03/25/2019 EKG Measurement Heart [id number] <Conclusion> Normal sinus rhythm Normal ECG
== END 2019-03-25 14:30 | disposition home or self-care (01) ==
LOC: ED 11:31
DX: R42 Dizziness and giddiness (principal); I11.0 Hypertensive heart disease with heart failure; I50.9 Heart failure, unspecified; E11.9 Type 2 diabetes mellitus without complications; Z86.73 Personal history of transient ischemic attack (TIA), and cerebral infarction without residual deficits